=== PATIENT | female | born 1970 | race Caucasian/White ===

== ENCOUNTER → 2019-12-07 17:50 | Outpatient (CLI) | payer MEDICAID, SELFPAY | PROVIDERS: PCP Internal Medicine; Referring Provider Clinical Nurse Specialist; Visit Provider Clinical Nurse Specialist | DX: Z20.828 Contact with and (suspected) exposure to other viral communicable diseases (principal) | CPT/HCPCS: 87635; 94799; U0003 ==

== ENCOUNTER 2020-04-25 03:55 | Emergency (ER) | payer MEDICAID, SELFPAY ==
[2020-04-25 03:56] VITALS: BP 149/71; PULSE 93; RESP 18; TEMP 36.6; O2SAT 96; BMI 19.1
[2020-04-25 04:01] VITALS: BMI 19.1
[2020-04-25 04:05] VITALS: BP 149/71; PULSE 93; RESP 18; O2SAT 96
--- NOTE | 2020-04-25 04:07 | CT_ITS ---
We are attempting to reach an attending provider to discuss findings. An addendum with communication details will be sent when the communication is complete. HISTORY: APHASIA ADDITIONAL HISTORY: None provided. COMPARISON: None EXAMINATION/TECHNIQUE: CT Head Stroke Protocol W/O Contrast Injection. Axial, coronal and sagittal images. Number of images including paperwork: 241. A radiation dose optimization technique was used for this scan. FINDINGS: BRAIN: No acute hemorrhage or mass. No definite acute infarct; MRI more sensitive. VENTRICULAR SYSTEM: No hydrocephalus. PARANASAL SINUSES AND MASTOIDS: No air-fluid level in the imaged extent. ORBITS: Unremarkable imaged extent. SKELETON AND SOFT TISSUES: Calvarium intact. ASPECTS score: 10 CT/STROKE Brain/Head without Cont IMPRESSION: No acute intracranial abnormality. Individualized dose optimization techniques were used for this CT. at 0437 Reported and signed by: Marcela Trujillo MD Electronically Signed: Marcela Trujillo MD at 4:37 EST Tel , Service support ,
--- NOTE | 2020-04-25 04:07 | EKG12_ITS ---
Test Reason : NEURO Blood Pressure : / mmHG Vent. Rate : 086 BPM Atrial Rate : 086 BPM P-R Int : 146 ms QRS Dur : 076 ms QT Int : 394 ms P-R-T Axes : 068 058 177 degrees QTc Int : 471 ms Normal sinus rhythm Low voltage QRS T wave abnormality, consider inferior ischemia T wave abnormality, consider anterolateral ischemia Prolonged QT Abnormal ECG Confirmed by ANDREW MÁRQUEZ, RENAE ([id number]), design editor RADHA JONES ([id number]) on 04/28/2020 9:53:50 AM Referred By: Confirmed By:RENAE MORALES MD
--- NOTE | 2020-04-25 04:07 | RAD_ITS ---
HISTORY: neuro deficit recent dx with lung ca ADDITIONAL HISTORY: None provided. EXAMINATION/TECHNIQUE: XR Chest 1 View AP/PA Number of images including paperwork: 1 COMPARISON: None FINDINGS: LUNGS AND PLEURA: Moderate sized loculated left pleural effusion and left pleural thickening with left basilar opacity. Linear right basilar opacity suggestive of subsegmental atelectasis. CARDIAC SILHOUETTE: Unremarkable. MEDIASTINUM AND JANIE: Unremarkable. UPPER ABDOMEN: Unremarkable. SKELETON AND SOFT TISSUES: No acute skeletal findings. OTHER DEVICES AND HARDWARE: None. RAD/Chest 1 View IMPRESSION: Loculated left pleural effusion with pleural thickening and left basilar opacity consistent with provided history of lung cancer. Linear right basilar opacity suggestive of subsegmental atelectasis. at 0505 Reported and signed by: Marcela Trujillo MD Electronically Signed: Marcela Trujillo MD at 5:05 EST Tel , Service support ,
--- NOTE | 2020-04-25 04:07 | CT_ITS ---
We are attempting to reach an attending provider to discuss findings. An addendum with communication details will be sent when the communication is complete. HISTORY: STROKE Aphasia TECHNIQUE: CT angiogram of the brain was performed with IV contrast. CT angiogram images of the neck were obtained with IV contrast. 3D reconstructions were reviewed to aid in vascular evaluation. NASCET criteria using the distal internal carotid arteries were used for evaluation of stenoses. A radiation dose optimization technique was used for this scan. IV Contrast dosage and agent: 100 ml [id number] Number of images including paperwork: 776 COMPARISON: None CTA neck: FINDINGS: AORTIC ARCH AND BRANCHES: No dissection. RIGHT CAROTID ARTERIES: No occlusion, significant stenosis or dissection. LEFT CAROTID ARTERIES: No occlusion, significant stenosis or dissection. RIGHT VERTEBRAL ARTERY: No occlusion, significant stenosis or dissection. LEFT VERTEBRAL ARTERY: No occlusion, significant stenosis or dissection. NECK SOFT TISSUES: Unremarkable. LUNG APICES: Moderate size loculated left pleural effusion with some nodular appearing pleural thickening along the medial hemithorax. Severe emphysema. BONES: Unremarkable. IMPRESSION: No acute vascular abnormality of the neck. Loculated left pleural effusion with nodular pleural thickening concerning for the possibility of tumor. CTA head: FINDINGS: INTERNAL CAROTID ARTERIES: No significant stenosis of the intracranial segments. 3 x 4 mm aneurysm of the right supraclinoid ICA. ANTERIOR CEREBRAL ARTERIES: No significant stenosis of the visualized segments. ANTERIOR COMMUNICATING ARTERY: Present. MIDDLE CEREBRAL ARTERIES: No significant stenosis of the visualized segments. VERTEBRAL ARTERIES: No significant stenosis of the intradural/visualized segments. BASILAR ARTERY: No significant stenosis. POSTERIOR CEREBRAL ARTERIES: No significant stenosis of the visualized segments. CT/STROKE CTA Head AND Neck W/Con IMPRESSION: No acute vascular abnormalities of the head. Right supraclinoid ICA aneurysm. Individualized dose optimization techniques were used for this CT. at 0444 Reported and signed by: Marcela Trujillo MD Electronically Signed: Marcela Trujillo MD at 4:43 EST Tel , Service support ,
[2020-04-25 04:13] LABS: Absolute Lymphocyte Count 1.69 X10^3/uL (0.83-4.51); Absolute Neutrophil Count 8.1 X10^3/uL (2.0-7.7); Basophil# 0.06 X10^3/uL; Basophil% 0.6 % (0-1); Eosinophil# 0.03 X10^3/uL; Eosinophils% 0.3 % (0-5); Hematocrit 47.5 % (37-47); Hemoglobin 15.1 g/dL (12.0-15.0); Lymphocyte # 1.69 X10^3/ul (4.0); Lymphocyte % 15.9 % (19-41); Mean Corp Hgb Conc 31.8 g/dL (32-36); Mean Corpuscular Hgb 29.4 pg (27.0-32.0); Mean Corpuscular Volume 92.4 fL (81-99); Mean Platelet Vol. 9.5 fl (6.2-12.0); Monocyte# 0.74 X10^3/uL; NRBC Flagged by Analyzer 0 % (0-5); Neutrophil # 8.05 X10^3/uL (2.7-7.7); Neutrophil % 75.9 % (47-70); Platelet Count 411 K/mm3 (150-450); RBC Distribution Width CV 12.5 % (11.6-14.6); RBC Distribution Width SD 42.7 fl (35.1-43.9); Red Blood Count 5.14 M/mm3 (4.2-5.4); White Blood Count 10.6 K/mm3 (4.4-11.0)
[2020-04-25 04:23] LABS: Prothrombin Time (Protime)PT. 12.8 SECONDS (11.7-14.9)
--- NOTE | 2020-04-25 04:24 | ED.VIS.STROK ---
History of Present Illness Chief Complaint: Neuro S/Sx Informant: Patient, Friend Narrative: At approximately 2300 hrs. the patient was leaving her friend's house. She came back inside about 10 minutes after leaving and reportedly had fallen. She was having difficulty speaking and moving the right side of her body. Her friend tried to convince her to come to the hospital but she did not want to. He tells me that she has recently been diagnosed with stage IV lung cancer. He states that the work-up had been done through [facility]. There is does have an appointment tomorrow with oncology but they do not know with whom. Patient reports not being on a blood thinner. Past Medical History - Allergies and Home Meds Allergies/Adverse Reactions: Allergies No Known Allergies Allergy (Verified 04/25/20 04:00) Primary Care Physician: Pamela Stephenson MD [Primary Care Provider] - Past Medical History: - - Stage IV lung cancer Surgical History: noncontributory Smoking Status: Former smoker Drugs: None Review of Systems ROS: Unable to Obtain STROKE Vital Signs/Narrative: Vital Signs Temp Pulse Resp BP Pulse Ox 04/25/20 04:05 93 18 149/71 H 96 04/25/20 03:56 97.9 F 93 18 149/71 H 96 Inital Vital Signs reviewed: Yes - NIHSS Initial 1a Level of Consciousness: 0 1b LOC Questions (Score 2 if aphasic/stupor): 1 1c LOC Commands (Only score 1st attempt): 0 2 Best Gaze (If aphasic, use reflexive mvmts.): 0 3 Visual: 0 4 Facial Palsy: 0 5 Motor Arm Right (UN = amputation/fusion): 0 5 Motor Arm Left: 0 6 Motor Leg Right: 0 6 Motor Leg Left: 0 7 Limb ataxia (Only + if out of proportion): 1 8 Sensory (Aphasia/stupor=0 or 1, coma=2): 0 9 Best Language: 2 10 Dysarthria (mute, coma=2, intubated=UN): 1 11 Extinction and Inattention (only scored if +): 0 Total Score: 5 General: Well nourished, Well developed Head: Normocephalic, Atraumatic Eyes: Perrl, EOMI ENT: Moist mucous membranes, No rhinorrhea Neck: Supple, Nontender Cardiovascular: Regular rate, Regular rhythm, No murmurs Respiratory: No distress, CTA bilaterally, Chest nontender Abdomen: Soft, Nontender, Nondistended, Normal bowel sounds Back: Nontender, Normal Inspection Extremities: Nontender, No edema Skin: Normal color, No rash Neurological: Alert, - - Patient has expressive aphasia. She has past pointing with [id number] on the right. Psychological: Normal affect Diagnostic/Tx/Re-eval Clinical Impression(s) from Imaging Studies Brain CT 04/25/20 04:07 IMPRESSION: No acute intracranial abnormality. Individualized dose optimization techniques were used for this CT. at 0437 Reported and signed by: Marcela Trujillo MD Electronically Signed: Marcela Trujillo MD at 4:37 EST Tel , Service support , Head/Neck CTA 04/25/20 04:07 IMPRESSION: No acute vascular abnormalities of the head. Right supraclinoid ICA aneurysm. Individualized dose optimization techniques were used for this CT. at 0444 Reported and signed by: Marcela Trujillo MD Electronically Signed: Marcela Trujillo MD at 4:43 EST Tel , Service support , Laboratory Last Values WBC 10.6 K/mm3 (4.4-11.0) 04/25/20 04:00 RBC 5.14 M/mm3 (4.2-5.4) 04/25/20 04:00 Hgb 15.1 g/dL (12.0-15.0) H 04/25/20 04:00 Hct 47.5 % (37-47) H 04/25/20 04:00 MCV 92.4 fL (81-99) 04/25/20 04:00 MCH 29.4 pg (27.0-32.0) 04/25/20 04:00 MCHC 31.8 g/dL (32-36) L 04/25/20 04:00 RDW Std Deviation 42.7 fl (35.1-43.9) 04/25/20 04:00 RDW Coeff of Annmarie 12.5 % (11.6-14.6) 04/25/20 04:00 Plt Count 411 K/mm3 (150-450) 04/25/20 04:00 MPV 9.5 fl (6.2-12.0) 04/25/20 04:00 Immature Gran % (Auto) 0.300 % (0.0-0.9) 04/25/20 04:00 Neut % (Auto) 75.9 % (47-70) H 04/25/20 04:00 Lymph % (Auto) 15.9 % (19-41) L 04/25/20 04:00 [place] % (Auto) 7.0 % (0-10) 04/25/20 04:00 Eos % (Auto) 0.3 % (0-5) 04/25/20 04:00 Baso % (Auto) 0.6 % (0-1) 04/25/20 04:00 Absolute Neuts (auto) 8.1 X10^3/uL (2.0-7.7) H 04/25/20 04:00 Absolute Lymphs (auto) 1.69 X10^3/uL (0.83-4.51) 04/25/20 04:00 Nucleated RBC % 0 % (0-5) 04/25/20 04:00 PT 12.8 SECONDS (11.7-14.9) 04/25/20 04:00 INR 1.0 04/25/20 04:00 APTT 23.0 Seconds (24.1-36.2) L 04/25/20 04:00 Sodium 142 mmol/L (136-145) 04/25/20 04:00 Potassium 3.9 mmol/L (3.5-5.1) 04/25/20 04:00 Chloride 109 mmol/L (98-107) H 04/25/20 04:00 Carbon Dioxide 25.0 mmol/L (21.0-32.0) 04/25/20 04:00 Anion Gap 8 (5-15) 04/25/20 04:00 BUN 13 mg/dL (7-18) 04/25/20 04:00 Creatinine 0.71 mg/dL (0.55-1.02) 04/25/20 04:00 Estim Creat Clear Calc 79.32 ml/min 04/25/20 04:00 Est GFR (MDRD) Af Amer 112 mL/min (>60) 04/25/20 04:00 Est GFR (MDRD) Non-Af 93 mL/min (>60) 04/25/20 04:00 BUN/Creatinine Ratio 18.4 RATIO (10-20) 04/25/20 04:00 Glucose 128 mg/dL (74-106) H 04/25/20 04:00 Calcium 9.2 mg/dL (8.5-10.1) 04/25/20 04:00 Troponin I < 0.015 ng/mL (<0.045) 04/25/20 04:00 - EKG Initial EKG Interpretation: Sinus Rhythm - EKG demonstrates a normal sinus rhythm at a rate of 86. - Medical Decision Making Stroke Team Activated: Yes Reviewed Inclusion/Exclusion criteria: Yes Was Patient considered for Endovascular Intervention?: Yes IV Alteplase (t-PA) Administered: No No contraindications for IV Alteplase (t-PA) administration.: No Alteplase (t-PA) risks, benefits, alternative discussed: No Not given: Patient refusal: No 49-year-old female with a pronounced expressive aphasia and ataxia of the right arm. She was interviewed by [facility] teleneurology. It was felt that the patient may have a clot involving her dural artery. They recommend transfer to [facility] for further care. Initially patient refused. We had a conversation and the patient agrees. Unfortunately does not appear anybody is flying tonight. We will work diligently to get ground transportation here. Critical care time (excluding procedures): 30-74 minutes - 35 minutes ED Disposition - Plan for ED Patient: Disposition: [facility] Diagnosis: Acute ischemic stroke, Expressive aphasia Referrals: Pamela Stephenson MD [Primary Care Provider] -
[2020-04-25 04:29] LABS: Anion Gap 8 (5-15); BUN 13 mg/dL (7-18); BUN/Creat Ratio 18.4 RATIO (10-20); Calcium,Total 9.2 mg/dL (8.5-10.1); Chloride 109 mmol/L (98-107); Creatinine, Serum 0.71 mg/dL (0.55-1.02); EST Glomerular Filtration Rate 93 mL/min (>60); Est Glom Filt Rate - Afr Amer 112 mL/min (>60); Estimated Creatinine Clearance 79.32 ml/min; Glucose 128 mg/dL (74-106); Potassium 3.9 mmol/L (3.5-5.1); Sodium Level 142 mmol/L (136-145)
[2020-04-25 04:40] VITALS: BP 125/70; PULSE 93; RESP 25; O2SAT 92
--- NOTE | 2020-04-25 05:16 | NURSING ---
NEITHER [employer] OR [employer] ARE FLYING CALLED PHYSICIANS, THEY ARE CALLING OTHER COMPANIES SINCE THEY HAVE A LONG WAIT TILL THEY COULD GET TRANSPORT TO US
[2020-04-25 05:37] VITALS: BP 124/68; PULSE 85; RESP 23; O2SAT 94
[2020-04-25 05:56] VITALS: BP 124/68; PULSE 85; RESP 23; O2SAT 94
[2020-04-25 06:00] VITALS: BP 118/69; PULSE 55; RESP 23; O2SAT 92
[2020-04-25 08:46] LABS: Bedside Glucose 128 mg/dL (70-110)
== END 2020-04-25 06:10 | disposition short-term general hospital (02) ==
PROVIDERS: Emergency Provider Emergency Medicine; PCP Internal Medicine
DX: I63.9 Cerebral infarction, unspecified (principal); R47.01 Aphasia; Z87.891 Personal history of nicotine dependence
CPT/HCPCS: 70450; 70496; 70498; 71045; 80048; 82962; 84484; 85025; 85610; 85730; 93005; 99285; Q9967; A4216

== ENCOUNTER → 2020-05-13 09:42 | Outpatient (CLI) | payer MEDICAID, SELFPAY ==
[2020-04-25 04:01] VITALS: BMI 19.1
--- NOTE | 2020-05-13 | IMM_PTH ---
PATIENT: MARTIN SIM LOC: U#:[id number] AGE/SX: 54/F ROOM: RE05/13/[address]: Dr. Grisel Alexander MD : 1970 BED: DIS: SPEC #: [id number] RECD: 05/14/20 12:31 STATUS: ASTER REQ #: [id number] IFEOMA: 05/13/20 00:[address]: Grisel Alexander DEPT: IMMUNOHISTOCHEMISTRY RECD BY: Aaliyah Nova ENTERED: 05/14/20 12:33 SP TYPE: IMMUNO OTHR DR: Dr. Pamela Stephenson MD Tissues: THORACIC FLUID Procedures: RCC (add) NAPSIN A (add) Viktor Ret (add) CK19 (add) CK20 (add) CK5-6 (add) CK7 (add) CK8 (add) ACKERMAN-2 (add) MAMM (add) P53 (add) MS (add) TTF1 (add) Vimentin (add) Pankeratin (add) GATA3 (add) P40 (add) CDX2 (add) ER (initial) S-100 (add) PHYSICIAN & [place] [phone] SPECIMEN INFORMATION: Tissue Source: Thoracentesis fluid Clinical Info: Pleural effusion Specimen Number: [id number] CPT code: 36258, 21784 x19 METHODOLOGY: Deparaffinized sections of prefer/formalin-fixed tissue or PAP/DQ stained slides are incubated with monoclonal/polyclonal antibodies/oligonucleotide probes. Localization is made via biotin free immunoperoxidase method. Appropriate controls are performed and reacted as expected. Results on target cell population are indicated in the following table: RESULTS: ANTIBODY / CLONE RESULT ER (6F11) negative MS (1E2) negative Mammaglobin (31A5) negative GATA3 (L50-823) negative AE1-3 (AE1/AE3/PCK26) positive CK7 (OV-TL12/30) positive CK8 (99zqbiF75) positive CK20 (KS20.8) negative ACKERMAN-2 (SP21) negative CDX2 ([id number]) negative Vimentin (V9) negative S-100 (4C4.9) negative CK19 (A53-B/A2.26) positive TTF-1 (8G7G3/1) positive, focal Napsin A (Rabbit Polyclonal) positive RCC (PN-15) negative CALRET (polyclonal) negative CK5-6 (D5 & 1684) negative P40 (BC28) negative P53 (DO-7) negative These tests were developed and their performance characteristics determined by [facility]. They may not have been cleared or approved by the U.S. Food and Drug Administration. The FDA has determined that such clearance or approval is not necessary. The above immunohistochemical/dualISH markers are ordered and reviewed by the Pathologist. INTERPRETATION: Thoracentesis fluid: Non-small cell carcinoma. See comment. AM:dina 05/15/2020 Comment: The IHC profile is consistent with a lung adenocarcinoma. Clinical correlation is necessary.
--- NOTE | 2020-05-13 09:55 | US_ITS ---
PROCEDURE: ULTRASOUND GUIDED THORACENTESIS. DATE: . INDICATION: Female, 49 years old. Left pleural effusion. PHYSICIAN: Stephen Kearns M.D. PROCEDURE: The risks, benefits, and alternatives to the procedure were explained to the patient. The specific risks of bleeding, infection, and pneumothorax requiring chest tube insertion were discussed and accepted. Written informed consent was obtained. Ultrasonographic evaluation of the left lower pleural space was carried out. An adequate pocket was identified. The patient was placed in the sitting, upright position. The overlying skin was prepped and draped in sterile fashion. 1% lidocaine was administered subcutaneously for local anesthesia. Under ultrasound guidance, a 5 Faroese thoracentesis needle/catheter system was advanced into the left posterior lower pleural fluid collection. Approximately 650 mL of aleisha-colored fluid was drained. The catheter was removed, and a sterile dressing was applied. A specimen was collected and sent to the laboratory for analysis, as requested by the referring clinician. The patient tolerated the procedure well. A chest x-ray was ordered. US/Thoracentesis W US IMPRESSION: Ultrasound-guided left thoracentesis.. Electronically Signed: Stephen Kearns MD at 12:17 EST , Service support ,
[2020-05-13 09:56] LABS: Hematocrit 45.7 % (37-47); Hemoglobin 14.3 g/dL (12.0-15.0); Mean Corp Hgb Conc 31.3 g/dL (32-36); Mean Corpuscular Hgb 28.9 pg (27.0-32.0); Mean Corpuscular Volume 92.3 fL (81-99); Mean Platelet Vol. 9.3 fl (6.2-12.0); Platelet Count 483 K/mm3 (150-450); RBC Distribution Width CV 12.7 % (11.6-14.6); RBC Distribution Width SD 42.8 fl (35.1-43.9); Red Blood Count 4.95 M/mm3 (4.2-5.4); White Blood Count 7.1 K/mm3 (4.4-11.0)
[2020-05-13 10:55] VITALS: BP 107/53; PULSE 76; RESP 16; TEMP 36.6
--- NOTE | 2020-05-13 11:05 | FLU_PTH ---
PATIENT: MARTIN SIM LOC: U#:[id number] AGE/SX: 54/F ROOM: RE05/13/[address]: Dr. Grisel Alexander MD : 1970 BED: DIS: SPEC #: [id number] RECD: 05/13/20 11:47 STATUS: ASTER LINDO #: [id number] IFEOMA: 05/13/20 11:[address]: Grisel Alexander DEPT: CYTOLOGY RECD BY: Citlali Denny ENTERED: 05/13/20 13:04 SP TYPE: Fluid OTHR DR: Dr. Pamela Stephenson MD Tissues: THORACIC FLUID Procedures: Special Stain Group II Mucicarmine Stain (control) Surgery Specimen Level IV Cytospin Fluid HEADER OPERATION: Ultrasound guided thoracentesis, left PRE-OP DIAGNOSIS: Pleural effusion TISSUE SUBMITTED: Thoracentesis fluid for cytology DIAGNOSIS CYTOLOGY Thoracentesis fluid for cytology (cytospin and cell block): Positive for malignant cells, non-small cell carcinoma. See comment. AM:dina 05/14/2020 COMMENT Immunohistochemistry ([id number]) supports the above diagnosis and favors and adenocarcinoma of lung origin. Mucin stain with matched control was used in the evaluation of this case and is focally positive. CYTOLOGY STUDY Slides are reviewed. CYTOLOGY GROSS Received is 100 ml of yellow, cloudy fluid labeled with the patient's name and and designated per the requisition as thoracentesis. Submitted for cytology preparation including cell block. / dina 05/13/2020 TC:0 CPT: 22044, 47131, 45732 ADDENDUM ADDENDUM ADDENDUM ADDENDUM ADDENDUM ADDENDUM ADDENDUM ADDENDUM ADDENDUM ADDENDUM ADDENDUM 12/30/2020 09:04 ADDENDUM 12/30/2020 09:04 ADDENDUM 12/30/2020 09:04 ADDENDUM 12/30/2020 09:04 ADDENDUM 12/30/2020 09:04 [facility] NGS KRAS SEQUENCING REPORT FROM Mobile Complete RESULT SUMMARY: Normal PERTINENT NEGATIVE RESULTS: The following genes are negative for clinically relevant mutations. Mutational hotspots and surrounding exonic regions were interrogated for DNA level point mutations and indels (fusions not assayed). KRAS Please see complete report in e-chart or EMR
--- NOTE | 2020-05-13 11:10 | RAD_ITS ---
STUDY: X-RAY CHEST REASON FOR EXAM: Female, 49 years old. IMMEDIATELY POST THORA, INSP/EXP TECHNIQUE: AP inspiration and expiration views. COMPARISON: Comparison is made with prior study dated 04/25/2020. FINDINGS: The patient is status post left thoracentesis. There is no evidence of pneumothorax. Residual pleural parenchymal changes are seen at the left lung base. RAD/Chest Insp/Exp 2 View IMPRESSION: Status post left thoracentesis with residual pleural-parenchymal changes at the left lung base. Electronically Signed: Stephen Kearns MD at 12:09 EST , Service support ,
[2020-05-13 11:30] VITALS: BP 119/58; PULSE 80; RESP 18; O2SAT 96
== END ==
PROVIDERS: PCP Internal Medicine; Referring Provider Internal Medicine Hematology & Oncology; Visit Provider Internal Medicine Hematology & Oncology
DX: J90 Pleural effusion, not elsewhere classified (principal)
CPT/HCPCS: 32555; 36415; 71046; 85027; 85610; 88108; 88305; 88313; 88341; 88342

== ENCOUNTER 2020-05-30 12:00 | Outpatient (RCR) | payer MEDICAID, SELFPAY ==
--- NOTE | 2020-05-05 12:54 | HP.PTEVAL_ITS ---
Patient's Visit Information MARTIN SIM is a 49 year old F referred to Physical Therapy by BRAYDON CHONG with a diagnosis of CVA. Date of Evaluation: 05/05/20 Physical Therapist: Clifford Leyva, FREDOT, OCS, CSCS - Visit Plan Frequency: 2x /Week Duration: 4-6 Weeks Plan: 2x/weeek fro 3-4 weeks. PT wishes to focus on shoulder adn should be treated with : R shoulder ROM and strengthening of cuff and scap and posture. Monitor need/desire to strengthen generaly and R LE. may use manual on shoulder for ROM. Ice if needed. - Subjective ( days ago on 04/26/20 had an ischemic stroke. She knew this becasue she could not walk or feel R side or talk right. Had brain surgery right away to remove clot through femoral vein. Was in hospital for a week at [facility]. Could not do inpatient rehab b/c was doing so wella dn went home last . Live alone. One story house no steps. Cannot drive. Staying with son and friend b/c afraid to be home alone. Dresses self adn bathe and shower self. Walking is OK, balance may be off sometimes. No dizzyness. Out of breath at times. takes a lot longer to do things than it used to. During the day she goes to her house and cleans up but spends the night elsewhere. Sleeping is not great as R armand rivera hurts at t imes. No falls except the night she had stroke. X rayed R shoulder at hospital. Empoyed in residential, helping people as needed. Pt also has lung CA so may not go back to work. Still workig on the treatment for that as she just found out before . Enjoys thrift shopping when healthy. Walking at [facility] wehn heatlhy. R foot adn leg feel pretty good, they shake sometimes. - Pain R shoulder Pain Intensity (Out of 10): 0 Pain Intensity Range: 0, 3 - Objective Walks I but slowly back to PT. Trasnfers I. Steps are reciprocal without rail today. UE AROM is full but slow on R side at end range of flexion to 130 and starts to get painful. Rotations are full in both shoulders. Elbow and wrist are WFL. Sensatio in UE are full and WNL to gross light touch. reflexes 2/3 bi and tri. LE AROM WNL, mild tightness HS B. reflexes 2/3 patella adn achilles. Sensation wNL to gross light touch in LE. Strength in LE 4 on r and 4+ on L. UE strength R shoulder 4- R adn 4 L. elbows also slightly weak on R. + HK and neer on R, - ext rotation lag test, - sulcus. Slight pain with apprehension but negative. Will benefit from Fine motor eval for OT and Speech eval as she has difficulty relaying her thoughts to me effecti vely at times and finsihing conversation. Otherwsie very functional with legs and balance. Wants to focus on shoulder in PT. - Balance Scores Functional Gait Assessment Score: 28 % Disability: 6.6700 - Goals Goal 1:: Sleep without waking at night due to R shoulder Goal Time Frame: 2-4 Weeks Goal 2:: Pain in R shoulder abolished adn full ROM to reachi into cupboards normally Goal Time Frame: 2-4 Weeks - Rehabilitation Potential Physical Therapy Diagnosis: R sided weakness CVA causing shoulder pain and difficulty sleeping. Rehabilitation Potential: Good - Anticipated Interventions Patient/Client Instruction: Educate patient on: Condition, Plan of Care For the Purpose of:: To decrease pain, To increase ROM, To improve muscle performance and motor function, To increase tolerance to activity/condition/position Therapeutic Exercise to Include: Strength training, Postural training, Flexibilty training, Neuromotor development, Passive ROM, Active ROM, Scapular Strength/Stabilization For the Purpose of:: To decrease pain, To increase ROM, To improve muscle performance and motor function, To increase tolerance to activity/condition/position, To improve ability of physical actions for home/community/work/leisure Manual Therapy Techniques to Include: Mobilization, Soft tissue mobilization For the Purpose of:: To decrease pain, To increase ROM Cryotherapy (ice pack, ice massage): Yes For the Purpose of:: To decrease swelling/inflammation Thank you for the opportunity to evaluate your patient. For Medicare and Medicare HMO plans, please review the plan of care and approve it. It will need to be FAXED BACK to us at [phone] for Medicare purposes. For Medicare only, by signing this I certify the plan of care. Please let me know if there are questions or concerns regarding this plan of care. Physician Signature: Date:
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
--- NOTE | 2020-05-12 18:40 | SOAP_ITS ---
REASON FOR REFERRAL: The patient is a 49 year old [place]Emale referred for a clinical assessment of the swallow function and communication function at [facility] on 05/12/2020 status post right supraclinoid ICA aneurysm. PREVIOUS MODIFIED BARIUM SWALLOW STUDY: None RESULTS OF THE EVALUATION: The patient presents with mild oropharyngeal dysphagia (I69.391) and mild aphasia (I69.320) SUPPLEMENTARY DYSPHAGIA ASSESSMENT RESULTS (SCALES / PROM): EATING ASSESSMENT TOOL ? 10 (EAT-10): EAT-10 TOTAL SCORE: 10 EAT-10 INTERPRETATION: a score of 3+ may represent swallowing problems ORAL MOTOR / MODIFIED CRANIAL NERVE ASSESSMENT (QUALITATIVE): TRIGEMINAL NERVE (CNV): no clinically significant abnormalities observed FACIAL NERVE (CNVII): abnormal; trace right facial and labial asymmetry at rest upon retraction GLOSSOPHARYNGEAL NERVE (CNIX): no clinically significant abnormalities observed VAGUS NERVE (CNX): no clinically significant abnormalities observed HYPOGLOSSAL NERVE (CNXII): no clinically significant abnormalities observed DENTITION: natural upper / lower dentition in sufficient repair SALIVATION: mild/moderate xerostomia (dry mouth), intermittent diurnal sialorrhea (drooling during daytime) COUGH SUFFICIENCY: impaired volitional cough intensity likely complicated by pleural effusion VOCAL QUALITY: abnormal vocal quality, with dysarthria with hypophonia, and vocal harshness (raspy) and hoarseness ORAL MOTOR / MODIFIED CRANIAL NERVE ASSESSMENT (QUANTITATIVE): PEITERSEN GRADING SYSTEM: GRADE: grade II DEGREE OF PALSY: moderate DESCRIPTION OF PALSY: moderate; visible with small facial movements SIALORRHEA SCORING SCALE (SSS): SSS SCORE: 4 (of 9) SSS DESCRIPTION: moderate, wet on the lips and chin, occasionally CLINICAL ASSESSMENT OF SWALLOW FUNCTION (QUANTITATIVE): REPETITIVE SALIVA SWALLOWING TEST (RSST): RSST RESULT: pass RSST DESCRIPTION: able to elicit 2 dry swallows within 30 seconds. 1OZ WATER SWALLOWING TEST (1OZ WST): 1OZ WST RESULTS: normal ? 1 (of 5) 1OZ WST DESCRIPTION: single swallow without coughing during ingestion DRINKING EPISODES: none 3OZ WATER SWALLOWING TEST (3OZ WST): 3OZ WST RESULTS: abnormal DRINKING EPISODES: discomfort RODARTE 6 FACTORS: DYSPHONIA: 1 (positive) DYSARTHRIA: 1 (positive) ABNORMAL GAG RESPONSE: ABNORMAL VOLITIONAL COUGH: 1 (positive) POST PRANDIAL COUGHIN (negative) POST PRANDIAL VOCAL CHANGES: 0 (negative) RODARTE 6 FACTORS SCORE: 3 RODARTE 6 FACTORS DESCRIPTION: moderate to severe (2 or more clinical predictors) SALCEDO ASSESSMENT OF SWALLOWING ABILITY (MASA): MASA SEVERITY SCORE: 184 MASA SEVERITY SCORE DESCRIPTION: unremarkable MASA ASPIRATION SEVERITY SCORE: 184 MASA ASPIRATION SEVERITY SCORE DESCRIPTION: unremarkable MASA DYSPHAGIA RISK RATING: probable; moderate evidence for disorder CLINICAL ASSESSMENT OF SWALLOW FUNCTION (QUALITATIVE): ORAL PREPARATORY PHASE: sufficient mastication rate and quality; sufficient anterior oral containment during manipulation; preserved management of breathing / bolus formation without disrupted E ? S ? E pattern ORAL TRANSITIONAL PHASE: no signs of transitional incompetence; no signs of bolus consolidation impairments; no signs or symptoms of premature posterior bolus loss; PHARYNGEAL PHASE: appropriate hyolaryngeal excursion upon digital palpation; intermittent / prominent audible swallow possibly suggestive of pharyngeal swallow delay / dyssynchrony; occasional multiple swallows during trials of smaller / rather manageable bolus volumes suggestive of pharyngeal dysmotility, no subjective signs of velopharyngeal impairments; no overt signs or symptoms of penetration / aspiration throughout trials. ESOPHAGEAL PHASE: esophageal phase appears unremarkable COMPLICATING FACTORS AND NOTABLE FINDINGS: clearly uncomfortable during trials, she is acutely aware of her dysphagia based symptomology, which is the likely factor after discussing with the patient. CLINICAL ASSESSMENT OF SWALLOW FUNCTION (SEVERITY GRADING): SWALLOWING PERFORMANCE SCALE (SPS): SPS SCORE: 3 (of 7) SPS SEVERITY LEVEL: mild SPS SCORE DESCRIPTION: mild dysfunction in oral or pharyngeal stage; requires modified diet without need for therapeutic swallowing precautions. COGNITIVE COMMUNICATION ASSESSMENT RESULTS (QUANTITATIVE): QUICK APHASIA BATTERY (QAB): <FORM 1> WORD COMPREHENSION: 10 /10 SENTENCE COMPREHENSION: 10 WORD FINDIN.83 /10 GRAMMATICAL CONSTRUCTION: 9.0 /10 SPEECH MOTOR PROGRAMMIN /10 REPETITION: READIN /10 QAB OVERALL: 9.49 /10 QAB SEVERITY: normal APHASIA CONNECTED SPEECH FEATURES: REDUCED LENGTH / COMPLEXITY OF UTTERANCES: 4 (Normal) REDUCED SPEECH RATE: 4 (100+ wpm) AGRAMMATISM: 4 (normal) PARAGRAMMATISM: 2 (moderate) ANOMIA: 3 (mild) EMPTY SPEECH: 2 (moderate) SEMANTIC PARAPHASIAS: 4 (normal) PHONEMIC PARAPHASIAS & NEOLOGISMS: 4 (normal) SELF CORRECTION: 3 (mild) OVERALL COMMUNICATION IMPAIRMENT: 3 (mild) MOTOR SPEECH FEATURES: DYSARTHRIA: 4 (normal) APRAXIA OF SPEECH: 4 (normal) APRAXIA OF SPEECH RATING SCALE (ASRS-v1): ASRS-v1 SCORE: 0 (of 4) ASRS-v1 SCORE DESCRIPTION: apraxia not present APHASIA SEVERITY RATING SCALE (ASRS): ASRS SCORE: 4 (of 5) ASRS SCORE DESCRIPTION: some obvious loss of fluency in speech or facility of comprehension, without significant limitation on ideas expressed or form expression COMMUNICATION ASSESSMENT RESULTS (QUALITATIVE): LANGUAGE FUNCTIONING: reduced mean length of utterances and rate of speech that can lack specificity, with occasional (and reportedly improving) anomic blocks; trace to mild dysarthria; mild apraxia, agraphia, or alexia noted. VOCAL FUNCTIONING: noted hypophonia with intermittent dysphonia (abnormal vocal quality) COMPLICATING FACTORS AND NOTABLE FINDINGS: complicating factors include possible effects from potential cancer based treatments, as she is perusing a second opinion regarding the possibility of lung cancer. COMMUNICATION ASSESSMENT RESULTS (SEVERITY GRADING): FUNCTIONAL COMMUNICATION MEASURE (FCM) ?LANGUAGE COMPREHENSION FCM ? LANGUAGE COMPREHENSION: 0 (of 6) SEVERITY: independent LEVEL DESCRIPTION: comprehension of language is appropriate for chronological age in all contexts. FUNCTIONAL COMMUNICATION MEASURE (FCM) ?LANGUAGE PRODUCTION FCM ? LANGUAGE PRODUCTION: 1 (of 6) SEVERITY: mild LEVEL DESCRIPTION: uses conversation to communicate a full range of needs and comments in broad contexts; minimal errors are noted in language structures (semantic, syntactic, morphologic, pragmatic); minimal errors are noted in phonologic awareness and/or metalinguistic skills; is a full conversational participant; self-monitoring is evident approximately 90% of the time. INTERVENTION CONSIDERATIONS AND RECOMMENDATIONS: While the questions regarding her swallow function would typically warrant further investigation under fluoroscopy, the patient was clear in that she would prefer to hold any diagnostic testing under radiation at this time. Therefore, we will proceed without fluoroscopy, though will continue to consider this option moving forward. RECOMMENDATIONS FOR INTERVENTION: The patient requires continued skilled speech-language intervention targeting oropharyngeal dysphagia via diet texture management and training / implementation of recommended compensatory strategies; training and implementation of recommended oropharyngeal strengthening exercises to facilitate improved oropharyngeal strength and coordination; patient education regarding stroke associated dysphagia; as well as continued skilled speech-language intervention targeting expressive aphasia with considerations for semantic feature analysis training (SFAT); with goal adjustment as clinically indicated POST ASSESSMENT EDUCATION: The results and recommendations were discussed with the patient immediately following completion of the assessment, with the patient verbalizing understanding and agreement with all recommendations and education provided. DIET TEXTURE RECOMMENDATIONS: Will recommend a regular ? easy to chew textured (IDDSI: 7), thin liquid diet (IDDSI: 0) diet RECOMMENDED COMPENSATORY STRATEGIES: Consider execution of the chin tuck posture via straw, reduced bolus volume / rate of ingestion, seated upright at 90 degrees during PO intake, remain upright for 30-60 minutes post meal (GERD precaution) FUNCTIONAL OUTCOMES: OUTCOME 1: the patient will tolerate the least restrictive means of nutrition to facilitate adequate hydration / nutrition with optimum safety and efficiency of swallowing function during P.O. intake without overt signs and symptoms of aspiration. OUTCOME 2: the patient will demonstrate and utilize recommended oropharyngeal strengthening exercises to facilitate improved oropharyngeal strength and coordination with minimal cueing and prompting provide by the clinician, across 2 out of 3 sessions. OUTCOME 3: the patient will participate in continual patient / patient caregiver education regarding stroke associated dysphagia to facilitate improved awareness and insight into the patient?s current dysphagia related complications and potential impact on the patient?s overall medical stability. OUTCOME 4: the patient will demonstrate and utilize recommended compensatory expressive speech strategies and participate in structured intervention sessions utilizing a variety of approaches (considerations for SFAT) to reduce the presence of aphasia / anomia communication attempts, during both structured and unstructured therapeutic tasks. OUTCOME 5: goal adjustment as needed Kingsley Dickerson M.A., CCC-PIPE STRAIGHTENER, CBIS MBSImP Certified, LSVT Certified [facility] Speech-Language Pathology Department Email: [email or web address]
[2020-05-22 13:44] VITALS: BMI 19.0
--- NOTE | 2020-09-24 12:37 | HP.OTDCNRP_ITS ---
MARTIN Kyle SIM was seen in my office for initial evaluation on 05/12/20. The following Plan of Care was established for this patient: Initial Frequency: 1x/Week Initial Duration: 4 Weeks Plan: opening jars/containers, avila pinch; thumb weakness; makeup; toileting Anticipated Interventions: Strengthening, Sensory Retraining, Fine Motor Coord/Raul, Neuro Reeducation, ADL Training, Education re assistive Equipment This patient was last seen in our office 05/30/20. Pertinent comments regarding their Occupational therapy will appear below: pt was seen for three OT visits with cancellation of her last apt due to weather. pt has not scheduled apts and due to time lapse in services pt d/c. At this point I will be discontinuing this patient from occupational therapy. I would be happy to see this patient again in the future if found appropriate by t gayatri physician. Thank you! Yajaira Tadeo, OTR/L, CHT
== END 2020-05-30 19:00 | disposition home or self-care (01) ==
LOC: OT 12:00
PROVIDERS: PCP Internal Medicine
DX: E87.8 Other disorders of electrolyte and fluid balance, not elsewhere classified (principal); Z86.73 Personal history of transient ischemic attack (TIA), and cerebral infarction without residual deficits
CPT/HCPCS: 97110; 97162; 97166; 97530

== ENCOUNTER → 2020-06-17 16:48 | Outpatient (CLI) | payer MEDICAID, SELFPAY ==
[2020-06-10 10:38] VITALS: BMI 17.7
--- NOTE | 2020-06-17 16:54 | CT_ITS ---
STUDY: CT CHEST WITH CONTRAST REASON FOR EXAM: Female, 49 years old. LUNG CANCER. Stage IV. RADIATION DOSAGE (If Supplied By Facility): CTDIvol = ( 6.05 ) mGy, DLP = ( 195.4 ) mGycm TECHNIQUE: Transaxial imaging was performed following intravenous administration of IV 100mL Isovue-370. Multiplanar coronal and sagittal images were reformatted. Individualized dose optimization techniques were used for this CT. COMPARISON: None. FINDINGS: Mild loss in the left hemithorax with compensatory expansion of the right lung. Diffuse emphysematous changes with bullous formation worse in the upper lobes. Diffuse pleural thickening involving the left hemithorax with a small left pleural effusion. Multiple pleural-based nodules are seen in the left hemithorax. The largest is seen in the anterior medial aspect of the left upper lobe and measures 1.9 cm x 1.5 cm. Thickening of the right major fissure. Atelectasis at the left lung base with evidence of bronchiectasis. Normal heart and pericardium. Normal mediastinum. Normal hilar regions. Normal enhanced pulmonary arteries. Normal aorta arch and descending thoracic aorta. Increased kyphosis. There is no demonstrated abnormality of the visualized upper abdomen. CT/Chest WITH Contrast IMPRESSION: Mild loss in the left hemithorax with evidence of diffuse pleural thickening on the left side with multiple pleural-based nodules. Scarring and bronchiectasis at the left lung base with evidence of atelectasis at the left lung base. Electronically Signed: Stephen Kearns MD at 9:02 EST , Service support ,
== END ==
PROVIDERS: PCP Internal Medicine; Referring Provider Internal Medicine Medical Oncology; Visit Provider Internal Medicine Medical Oncology
DX: C34.12 Malignant neoplasm of upper lobe, left bronchus or lung (principal)
CPT/HCPCS: 71260; Q9967

== ENCOUNTER → 2020-08-07 12:49 | Outpatient (CLI) | payer MEDICAID, SELFPAY ==
[2020-07-17 14:24] VITALS: BMI 17.3
--- NOTE | 2020-08-07 12:50 | CT_ITS ---
STUDY: CT CHEST T ABDOMEN WITH CONTRAST REASON FOR EXAM: Female, 49 years old. ASSESS TREATMENT RESPONSE-LUNG CANCER RADIATION DOSAGE (If Supplied By Facility): CTDIvol = ( 6.65 ) mGy, DLP = ( 446.22 ) mGycm TECHNIQUE: Transaxial imaging was performed following intravenous administration of IV 100mL Isovue-300. Individualized dose optimization techniques were used for this CT. COMPARISON: Comparison is made with prior examination dated 06/17/2020. FINDINGS: CHEST A right-sided portacatheter is seen with the tip in the superior vena cava. The right lung is hyperexpanded. Stable mild loss in the left hemithorax. Emphysematous changes in the right lung with a multiple bullous formation. This is unchanged. Stable loculated pleural effusion along the lateral aspect of the left hemithorax with thickening of the left major fissure. Stable increased markings in the left lung superimposed on emphysematous changes suggestive of a scarring. Since prior study, there has been progressive of bronchiectasis in the left lower lobe. The previously seen pleural-based nodules in the left lower lobe are visualized. These are essentially unchanged. Stable 1.9 cm x 1.5 cm nodule in the anterior medial aspect of the left upper lobe abutting the mediastinum. Normal heart and pericardium. Normal mediastinum. Normal hilar regions. Normal unenhanced pulmonary arteries. Normal aorta arch and descending thoracic aorta. Normal osseous structures. There is no demonstrated abnormality of the visualized upper abdomen. ABDOMEN Normal liver. Normal gallbladder and extrahepatic biliary system. Normal spleen. Normal pancreas. Normal bilateral adrenal glands. Right pelvic kidney. 3 small adjacent cysts are seen in the upper lateral aspect of the left kidney. Normal visualized stomach. Normal small intestine. Normal colon. The appendix is visualized and appears normal. There is diffuse atherosclerotic calcification of the abdominal aorta, without a demonstrated aneurysm. Normal inferior vena cava. Normal retroperitoneum. Heterogeneously enlargement of the uterus suggestive of fibroid uterus. Normal abdominal wall. Normal osseous structures. Increased kyphosis. CT/CT Chest AND Abd W/ Contrast IMPRESSION: Essentially stable examination of the CT of the thorax except for progressive bronchiectasis and atelectasis at the left lung base. Stable loculated left pleural effusion and nodules at the left lung base. Electronically Signed: Stephen Kearns MD at 14:44 EDT , Service support ,
== END ==
PROVIDERS: PCP Internal Medicine; Referring Provider Internal Medicine Medical Oncology; Visit Provider Internal Medicine Medical Oncology
DX: C34.12 Malignant neoplasm of upper lobe, left bronchus or lung (principal)
CPT/HCPCS: 71260; 74160; Q9967; A4216

== ENCOUNTER 2020-08-27 14:38 | Observation (INO) | payer MEDICAID, SELFPAY ==
[2020-08-20 13:13] VITALS: BMI 17.0
[2020-08-27] VITALS (9 sets, daily range): BP systolic 101–115; BP diastolic 54–92; PULSE 77–96; RESP 14–20; TEMP 36.1–36.8; O2SAT 91–95; BMI 16.5; BMI 35.4
--- NOTE | 2020-08-27 14:59 | CT_ITS ---
STUDY: CT BRAIN WITHOUT CONTRAST REASON FOR EXAM: Female, 49 years old. Visual changes RADIATION DOSAGE (If Supplied By Facility): CTDIvol = ( 44.99 ) mGy, DLP = ( 812.98 ) mGycm TECHNIQUE: Transaxial CT imaging of the brain was performed without administration of intravenous contrast material. Individualized dose optimization techniques were used for this CT. COMPARISON: 04/25/2020 FINDINGS: Normal soft tissue structures. Normal calvarium. There is mild cerebral atrophy with widening of the extra-axial spaces and ventricular dilatation. Normal white matter tracts of the cerebral hemispheres. Chronic lacunar infarct of the left putamen. Normal brainstem. Normal cerebellum. There is no intracranial hemorrhage. There are no findings of an acute ischemic infarction. Normal visualized paranasal sinuses. CT/Brain/Head without Contrast IMPRESSION: Chronic involutional changes of the brain. Electronically Signed: Hernandez Veras MD at 16:08 EDT Tel , Service support ,
--- NOTE | 2020-08-27 15:00 | EKG12_ITS ---
Test Reason : VISION Blood Pressure : / mmHG Vent. Rate : 090 BPM Atrial Rate : 090 BPM P-R Int : 136 ms QRS Dur : 076 ms QT Int : 356 ms P-R-T Axes : 080 088 040 degrees QTc Int : 435 ms Normal sinus rhythm Low voltage QRS (Limb Leads) Confirmed by ANDREW MÁRQUEZ, RENAE ([id number]), editor in chief RADHA JONES ([id number]) on 09/01/2020 2:20:21 PM Referred By: STACEY Confirmed By:RENAE MORALES MD
--- NOTE | 2020-08-27 15:01 | EX.ED.VIS.EY ---
HPI History of Present Illness Chief Complaint: Eye Problem Informant: patient and friend Onset/Context/Timing Location: Right Eye Onset: Today Context: Sudden Onset Timing: Intermittent and Lasts (Approximately 1 to 2 minutes) Worsened by: Bending forward Associated Symptoms Visual Changes: right: Blurred vision and Visual field cut History of injury: No Narrative Narrative: Patient presents with visual changes in her right eye that occurred today. 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 Patient states her vision was blurry and there were spots in her vision. Patient states her vision also went dark. Patient states this lasted proxy 1 to 2 minutes. Patient states her symptoms have resolved at the present time. Patient also states she has been having difficulty sleeping over the last 4 days. Patient states this is due to the pain in her left lower chest from lung cancer. Patient denies any headaches. Patient denies any paresthesias or weakness. [facility] Medical History (Reviewed 08/27/20 @ 17:34 by Sharona Peter DESKTOP SUPPORT ASSOCIATE, DESKTOP SUPPORT ASSOCIATE-C) Allergic rhinitis IBS (irritable bowel syndrome) Lung cancer Stroke/cerebrovascular accident Trigeminal neuralgia of right side of face Home Medications albuterol sulfate 2 puff INHALATION Q4H PRN PRN 05/13/20 [History Last Taken 1 Week Ago ~08/20/20] cyclobenzaprine 1 mg PO QHS PRN 06/09/20 [History Last Taken Unknown] aspirin 81 mg PO DAILY@0800 06/10/20 [History Last Taken 08/27/20] melatonin 5 mg PO QHS PRN 06/10/20 [History Last Taken 08/26/20] multivitamin 1 tab PO DAILY 06/10/20 [History Last Taken 08/26/20] calcium carbonate-vitamin D3 1 tab PO DAILY PRN 06/24/20 [History Last Taken Unknown] cannabidiol 100 mg PO BID PRN 07/01/20 [History Last Taken 08/27/20] naproxen-diphenhydramine 1 ea PO DAILY PRN 07/01/20 [History Last Taken 2 Days Ago ~08/25/20] Allergy/AdvReac Type Severity Reaction Status Date / Time Sulfa (Sulfonamide AdvReac Other Verified 08/27/20 14:39 Antibiotics) Family History Mother MVP (mitral valve prolapse) Atrial fibrillation Surgical History History of dilation and curettage History of exploratory laparotomy History of thoracentesis Social History Smoking Status: Former smoker quit date: 04/18/13 pack-years: 24 caffeine: Yes Type: tea Number of servings: 2 ROS ROS ED Constitutional Constitutional ED: Denies chills or fever(s) Eyes Eyes: Reports change in vision ENT ENT ED: Denies rhinorrhea or sore throat Cardiovascular Cardiovascular: Denies chest pain or palpitations Respiratory/Chest Respiratory/Chest: Reports dyspnea; Denies cough Gastrointestinal Gastrointestinal: Denies nausea or vomiting Genitourinary Genitourinary ED: Denies dysuria or hematuria Musculoskeletal Musculoskeletal: Reports back pain; Denies neck pain Integumentary Denies abscess or rash Neurologic Neurologic: Denies headache(s), paresthesias or weakness Allergic/Immunologic Allergic/Immunologic ED: Denies mouth swelling or urticaria EXAM Physical Exam Const Vital Signs: 08/27/20 14:39 Temperature 98.2 F Temperature Source Temporal Pulse Rate 95 Respiratory Rate 16 Blood Pressure 115/80 Blood Pressure Mean 91 Pulse Ox 95 Oxygen Delivery Method Room Air Positive well nourished and well developed General Appearance ED: well developed HEENT atraumatic Eyes General Eye ED: Yes normal appearance of both eyes and normal light reflex Alignment: alignment normal Eyelid: eyelids normal Conjunctiva: conjunctiva normal Sclera: sclera normal Cornea: cornea normal Pupil: PERRL EOM: Negative for EOM abnormal Direct Ophthalmoscopy: normal light reflex, No papilledema and fundi normal bilaterally Neck supple and no JVD Resp normal respiratory effort Effort and Inspection: other Diminished breath sounds in left base Cardio regular rate and regular rhythm GI non-tender Palpation: soft Neuro oriented x3, CN's II-XII intact bilaterally, moves all extremities and no sensory deficits noted Sensorium / Orientation: alert Motor Exam: strength 5/5 throughout MDM MDM MDM Narrative Medical decision making narrative: CT scan of the brain was obtained. There is no acute intracranial abnormality noted. This was interpreted by the radiologist and reviewed by myself. EKG was obtained. On my interpretation, it showed a normal sinus rhythm with a rate of 90. CO interval, QRS interval, and QTc intervals were all normal. [place] was normal. There are no acute ST or T wave changes. CBC and comprehensive metabolic profile were obtained and were essentially within normal limits. PT with INR and PTT were normal. Patient remained asymptomatic here in the emergency department. Patient states he does have some paresthesias of her right arm and right temporal area but this was due to her prior stroke. Case was discussed with the hospitalist. He will admit the patient to PCU for observation. Patient understood and was agreeable with the plan. All questions were answered. Lab Data Attestation: I reviewed the patient's lab results. EKG Initial EKG: Attestation: I personally reviewed and interpreted this EKG as follows: Interpretation: Sinus Rhythm (90) and No Acute Injury Pattern Prior EKG tracings: available for review Prior: Changed (Patient had prior T wave inversion in the inferior and lateral leads on old EKG from 04/25/2020. These are not present today.) Treatment and Re-Evaluation Vital Sign Attestation:: Vital signs were reviewed prior to patient being admitted. They are stable. Discharge Plan Dx/Rx/DC Orders Clinical Impression: Brain TIA Disposition Disposition: Acute Care Hospital [facility]
[2020-08-27] MEDS: Acetaminophen 500 MG Tablet 1000 MG PO (15:50)
[2020-08-27 15:55] LABS: Absolute Lymphocyte Count 0.84 X10^3/uL (0.83-4.51); Absolute Neutrophil Count 5.4 X10^3/uL (2.0-7.7); Basophil# 0.08 X10^3/uL; Basophil% 1.1 % (0-1); Eosinophil# 0.47 X10^3/uL; Eosinophils% 6.4 % (0-5); Hematocrit 44.2 % (37-47); Hemoglobin 14.3 g/dL (12.0-15.0); Lymphocyte # 0.84 X10^3/ul (0.83-4.51); Lymphocyte % 11.5 % (19-41); Mean Corp Hgb Conc 32.4 g/dL (32-36); Mean Corpuscular Hgb 28.3 pg (27.0-32.0); Mean Corpuscular Volume 87.4 fL (81-99); Mean Platelet Vol. 9.9 fl (6.2-12.0); Monocyte# 0.55 X10^3/uL; Monocyte% 7.5 % (0-10); NRBC Flagged by Analyzer 0 % (0-5); Neutrophil # 5.36 X10^3/uL (2.7-7.7); Neutrophil % 73.4 % (47-70); Platelet Count 428 K/mm3 (150-450); RBC Distribution Width CV 13.2 % (11.6-14.6); RBC Distribution Width SD 42.1 fl (35.1-43.9); Red Blood Count 5.06 M/mm3 (4.2-5.4); White Blood Count 7.3 K/mm3 (4.4-11.0)
[2020-08-27 16:06] LABS: ALB/GLOB Ratio 0.9 RATIO (0.9-2.4); AST(SGOT) 14 U/L (15-37); Alanine Aminotransfer ALT/SGPT 14 U/L (13-56); Albumin, Serum 3.6 g/dL (3.2-5.0); Alkaline Phosphatase 117 U/L (45-117); Anion Gap 5 (5-15); BUN 14 mg/dL (7-18); BUN/Creat Ratio 21.6 RATIO (10-20); Calcium,Total 9.2 mg/dL (8.5-10.1); Chloride 110 mmol/L (98-107); Creatinine, Serum 0.65 mg/dL (0.55-1.02); EST Glomerular Filtration Rate 102 mL/min (>60); Est Glom Filt Rate - Afr Amer 123 mL/min (>60); Estimated Creatinine Clearance 77.43 ml/min; Globulin 3.9 g/dL (2.2-4.2); Glucose 110 mg/dL (74-106); Potassium 3.9 mmol/L (3.5-5.1); Protein, Total 7.5 g/dL (6.4-8.2); Sodium Level 141 mmol/L (136-145)
[2020-08-27 16:30] LABS: International Normalized Ratio 1.1; Prothrombin Time (Protime)PT. 13.3 SECONDS (11.7-14.9)
[2020-08-27 16:31] LABS: Partial Thromboplast Time 27.3 Seconds (24.1-36.2)
--- NOTE | 2020-08-27 17:13 | NURSING ---
DR LI FOR DR IBARRA
--- NOTE | 2020-08-27 17:21 | NURSING ---
PCU OBS TIA ASHELFAH
--- NOTE | 2020-08-27 17:30 | HP.PCM.HOS_ITS ---
Documented by User: Sharona Peter NP, SIGNAL SYSTEM TESTING MAINTAINER-C 08/27/20 17:40 HPI - General General Date of Admission: 08/27/20 HPI Narrative MARTIN SIM, is a 49 F who presents to the emergency room due to right eye vision changes. Patient states she bent over earlier today to pick something up when the visual changes started. She states her visual symptoms are difficult to describe, states her vision went wacky and felt like her vision went in and out. She states the symptoms lasted a couple minutes and then resolved. She reports mild sensory changes surrounding her right eye. Otherwise denies new neurologic symptoms or focal deficits. She had previous CVA in April 2020 and has chronic residual right-sided sensory deficits. Patient states following her stroke she had some ongoing right eye issues however she saw ophthalmology who diagnosed her with dry eye and saw no other abnormalities. She has a past medical history of CVA, non-small cell lung cancer on Keytruda, former tobacco use, COPD, chronic pain. [facility] Medical History Allergic rhinitis IBS (irritable bowel syndrome) Lung cancer Stroke/cerebrovascular accident Trigeminal neuralgia of right side of face Home Medications albuterol sulfate 2 puff INHALATION Q4H PRN PRN 05/13/20 [History Last Taken 1 Week Ago ~08/20/20] cyclobenzaprine 1 mg PO QHS PRN 06/09/20 [History Last Taken Unknown] aspirin 81 mg PO DAILY@0800 06/10/20 [History Last Taken 08/27/20] melatonin 5 mg PO QHS PRN 06/10/20 [History Last Taken 08/26/20] multivitamin 1 tab PO DAILY 06/10/20 [History Last Taken 08/26/20] calcium carbonate-vitamin D3 1 tab PO DAILY PRN 06/24/20 [History Last Taken Unknown] cannabidiol 100 mg PO BID PRN 07/01/20 [History Last Taken 08/27/20] naproxen-diphenhydramine 1 ea PO DAILY PRN 07/01/20 [History Last Taken 2 Days Ago ~08/25/20] Allergy/AdvReac Type Severity Reaction Status Date / Time Sulfa (Sulfonamide AdvReac Other Verified 08/27/20 14:39 Antibiotics) Family History Mother MVP (mitral valve prolapse) Atrial fibrillation other (Denies known paternal medical history, states he was adopted) Surgical History History of dilation and curettage History of exploratory laparotomy History of thoracentesis Social History Smoking Status: Former smoker quit date: 04/18/13 pack-years: 24 caffeine: Yes Type: tea Number of servings: 2 ROS Constitutional Constitutional: Reports fatigue; Denies change in weight, chills, fever(s) or weakness Eyes Eyes: Reports blurry vision right Cardiovascular Cardiovascular: Denies chest pain, edema, lightheadedness, palpitations or syncope Respiratory/Chest Respiratory/Chest: Denies cough, dyspnea, productive cough, shortness of breath at rest, shortness of breath with exertion or wheezing Gastrointestinal Gastrointestinal: Denies abdominal pain, constipation, diarrhea, nausea or vomiting Genitourinary Genitourinary: Denies burning urination, difficulty urinating, dysuria, h ematuria, urinary frequency, urinary incontinence or urinary urgency Musculoskeletal Musculoskeletal: Denies back pain or joint pain Neurologic Neurologic: Denies abnormal speech, confusion, dizziness, focal weakness, numbness, paresthesias, seizure-like activity or syncope Psychiatric Psychiatric: Denies anxiety or depression Hematologic/Lymphatic Hematologic/Lymphatic: Denies anemia, easy bleeding or easy bruising Allergic/Immunologic Allergic/Immunologic: Denies hives or asthma Vital Signs Vital Signs Vital Signs: 08/27/20 14:39 08/27/20 15:08 Temperature 98.2 F Temperature Source Temporal Pulse Rate 95 96 Respiratory Rate 16 14 Blood Pressure 115/80 113/92 H Blood Pressure Mean 91 99 Pulse Ox 95 91 Oxygen Delivery Method Room Air Room Air Physical Exam Const alert, oriented x3 and no apparent distress Orientation / Consciousness: awake, oriented to person, oriented to place and oriented to time HEENT normocephalic and moist oral mucous membranes Eyes PERRL, EOMs intact bilaterally and conjunctivae normal Neck no lymphadenopathy Resp normal respiratory effort and clear to auscultation bilaterally Cardio regular rate, regular rhythm and no murmurs Peripheral Pulses: pulses 2+ throughout GI normal to inspection, nondistended, normoactive bowel sounds, non-tender and non-distended Extremity normal to inspection Skin no rashes or lesions noted Lesions: no lesions Rashes: no rashes Trauma: no lacerations or abrasions Neuro oriented x3, CN's II-XII intact bilaterally and no focal motor deficits Neuro Narrative: Chronic right-sided sensory deficits from prior CVA Sensorium / Orientation: awake and alert Psych affect normal Lab / Micro Data Result Diagrams: 08/27/20 15:38 08/27/20 15:38 Labs: Laboratory Results - last 24 hr 08/27/20 08/27/20 08/27/20 15:38 15:38 15:38 WBC 7.3 RBC 5.06 Hgb 14.3 Hct 44.2 MCV 87.4 MCH 28.3 MCHC 32.4 RDW Std Deviation 42.1 RDW Coeff of Annmarie 13.2 Plt Count 428 MPV 9.9 Immature Gran % (Auto) 0.100 Neut % (Auto) 73.4 H Lymph % (Auto) 11.5 L [place] % (Auto) 7.5 Eos % (Auto) 6.4 H Baso % (Auto) 1.1 H Absolute Neuts (auto) 5.4 Absolute Lymphs (auto) 0.84 Nucleated RBC % 0 PT 13.3 INR 1.1 APTT 27.3 Sodium 141 Potassium 3.9 Chloride 110 H Carbon Dioxide 26.0 Anion Gap 5 BUN 14 Creatinine 0.65 Estim Creat Clear Calc 77.43 Est GFR (MDRD) Af Amer 123 Est GFR (MDRD) Non-Af 102 BUN/Creatinine Ratio 21.6 H Glucose 110 H Calcium 9.2 Total Bilirubin 0.40 AST 14 L ALT 14 Alkaline Phosphatase 117 Troponin I < 0.015 Total Protein 7.5 Albumin 3.6 Globulin 3.9 Albumin/Globulin Ratio 0.[address] 08/27/20 14:59 IMPRESSION: Chronic involutional changes of the brain. Electronically Signed: Hernandez Veras MD at 16:08 EDT Tel , Service support , Assessment & Plan Assessment/Plan (1) Blurry vision, right eye: PLAN: 1. Right eye vision changes-obtain MRI of brain. Aspirin, statin. PT/OT/ST. NIHSS. 2. CVA-04/2020, on aspirin, not on statin. Chronic right-sided sensory deficits. 3. Non-small cell lung cancer on Keytruda-following with oncology. 4. Former tobacco use-quit 7 years ago. Encouraged continued cessation. 5. Chronic COPD-as needed albuterol aerosol. 6. Chronic pain-as needed pain regimen DVT prophylaxis-Lovenox subcu This patient was seen by BRIEN Cee under the supervision of Dr. Guerrero. Documented by User: Dr. Nicki Guerrero MD 08/27/20 17:49 HPI - General General Date of Admission: 08/27/20 [facility] Medical History Allergic rhinitis IBS (irritable bowel syndrome) Lung cancer Stroke/cerebrovascular accident Trigeminal neuralgia of right side of face Home Medications albuterol sulfate 2 puff INHALATION Q4H PRN PRN 05/13/20 [History Last Taken 1 Week Ago ~08/20/20] cyclobenzaprine 1 mg PO QHS PRN 06/09/20 [History Last Taken Unknown] aspirin 81 mg PO DAILY@0800 06/10/20 [History Last Taken 08/27/20] melatonin 5 mg PO QHS PRN 06/10/20 [History Last Taken 08/26/20] multivitamin 1 tab PO DAILY 06/10/20 [History Last Taken 08/26/20] calcium carbonate-vitamin D3 1 tab PO DAILY PRN 06/24/20 [History Last Taken Unknown] cannabidiol 100 mg PO BID PRN 07/01/20 [History Last Taken 08/27/20] naproxen-diphenhydramine 1 ea PO DAILY PRN 07/01/20 [History Last Taken 2 Days Ago ~08/25/20] Allergy/AdvReac Type Severity Reaction Status Date / Time Sulfa (Sulfonamide AdvReac Other Verified 08/27/20 14:39 Antibiotics) Family History Mother MVP (mitral valve prolapse) Atrial fibrillation Surgical History (Reviewed 08/27/20 @ 17:34 by Sharona Peter SIGNAL SYSTEM TESTING MAINTAINER, SIGNAL SYSTEM TESTING MAINTAINER-C) History of dilation and curettage History of exploratory laparotomy History of thoracentesis Social History Smoking Status: Former smoker quit date: 04/18/13 pack-years: 24 caffeine: Yes Type: tea Number of servings: 2 Lab / Micro Data Result Diagrams: 08/27/20 15:38 08/27/20 15:38 Addendum Addendum: Hospitalist note: I am seeing this patient in conjunction with Sharona Peter. I independently seen and examined the patient. History and physical, laboratory data and imagi ng studies reviewed and I concur with the above admission and work-up plan. Patient presented to the emergency room because of right eye vision change that started today. Patient stated that she is not able to describe the vision change that she has today but she mentioned that she felt that that her vision went and and then came back, described with some diplopia with, associated with numbness around the right eye. Currently, his symptoms resolved. She denied slurred speech, focal arm or leg weakness. She had a history of stroke in April, with resultant chronic right side sensory deficit. In the emergency department, her vital signs were stable. Her routine blood work was unremarkable. EKG revealed normal sinus rhythm, no acute changes. CT scan brain showed no acute findings. She is being admitted for visual changes on the right eye with probable TIA. - Physical Exam General: Alert, Oriented x3, Cooperative, No apparent distress. HEENT: Atraumatic, PERRLA, EOMI. Neck: Supple, No JVD, Negative Carotid Bruits, Trachea Midline, Thyroid Normal. Lungs: Clear to auscultation, Normal air movement, No rhonchi, No wheeze, No rales. Cardiovascular: Regular rate, Regular Rhythm, Normal S1, Normal S2, PMI Normal. Abdomen: Bowel Sounds Present, Soft, Non Tender, Non-Distended, No Hepato- splenomegaly. Extremities: No clubbing, No cyanosis, No edema Skin: No rashes, No breakdown Neurological: Cranial nerves are intact, vision is intact in both eyes, no visual field loss, normal power and tone of all limbs. Sensory deficit on the right side, chronic. Vital Signs are stable. Assessment and plan: #1 right eye vision changes: Could be due to TIA, patient has history of stroke in April,. CT scan brain showed no acute findings. She had no focal deficit on physical exam apart from chronic sensory deficit on the right side. EKG was unremarkable. Routine blood work was unremarkable. Plan: Admit to PCU for observation, cardiac monitoring, NIH stroke scale, start aspirin and Lipitor, MRI brain. If the MRI brain came back positive for acute stroke, we will need to do full stroke work-up. At this point, her symptoms are atypical for acute stroke. #2 other chronic medical problems: Stable, continue current medications as above. This note was generated with [employer] dictation software. It may contain incorrect words, spelling, and punctuation that were not noted in checking the note before signing. Visit Charges OBSV E&M: 50747 Initial observation care L2
[2020-08-27] MEDS: HYDROcodone Bitartrate/Apap 5/325 Tablet PO (17:33)
--- NOTE | 2020-08-27 17:39 | ED.RN ---
pt up to walk to br. back to bed and spo2 on ra with exertion ambulation 88% with pt being tachyneic. stated, i am like this at home too. yest i walked a mile nearly upon return to rest pox went back to 93% on ra. dr. desir in for admission assessment. pt took vicodin for lt side numbness/discomforts
--- NOTE | 2020-08-27 18:26 | MRI_ITS ---
HISTORY: Blurry vision, recent history of stroke EXAMINATION: MR Brain W/O Contrast TECHNIQUE: Multiplanar and multisequence MR images of the brain were obtained without gadolinium. IV Contrast dosage and agent: None. COMPARISON: Noncontrast head CT same day FINDINGS: BRAIN PARENCHYMA: No MRI evidence of hemorrhage. No evidence of acute infarct. Chronic lacunar infarction left external capsule. No intracranial mass or mass effect. There is preservation of the marin/white matter interface. Normal sella turcica, pituitary gland, infundibular stalk, optic chiasm and hypothalamus. The internal auditory canals are patent. Posterior fossa structures are unremarkable. CSF SPACES: Appropriate for age. No hydrocephalus. Basal cisterns are patent. VASCULAR SYSTEM: Normal flow voids in the major intracranial circulation. CALVARIUM, SKULL BASE, PARANASAL SINUSES AND MASTOID AIR CELLS: Clear. No discrete lytic or blastic abnormalities. ORBITS: Both globes, extraocular muscles, optic nerves and retrobulbar fat appear unremarkable. MRI/Brain without Contrast IMPRESSION: No acute intracranial findings. at 2326 Reported and signed by: Reza Schmidt MD Electronically Signed: Reza Schmidt MD at 23:25 EDT Tel , Service support ,
[2020-08-27] MEDS: MELATONIN 10 MG TABLET 5 MG PO (21:10)
[2020-08-27] MEDS: Acetaminophen 325 MG Tablet 650 MG PO (21:10)
[2020-08-27] MEDS: oxyCODONE 5 MG Tablet PO (21:10)
[2020-08-27] MEDS: Atorvastatin Calcium 40 MG Tablet PO (21:10)
[2020-08-27] MEDS: Senna/Docusate Sodium 1 Tablet 2 TABLET PO (22:14)
[2020-08-28] MEDS: oxyCODONE 5 MG Tablet PO (02:07)
[2020-08-28 02:41] VITALS: BMI 35.4
[2020-08-28 03:00] VITALS: PULSE 77
[2020-08-28 04:24] VITALS: BP 98/57; PULSE 81; RESP 18; TEMP 36.3; O2SAT 93
[2020-08-28 07:26] VITALS: O2SAT 93
[2020-08-28 07:45] VITALS: PULSE 74
[2020-08-28] MEDS: 0.9% Saline Lock 10 ML Syringe IV (09:48)
[2020-08-28] MEDS: Ondansetron 4 MG/2 ML Vial IV (09:48)
[2020-08-28 10:00] VITALS: BP 103/67; PULSE 80; RESP 16; TEMP 36.4; O2SAT 94
--- NOTE | 2020-08-28 10:36 | PCM.DC ---
Discharge Instructions Diet Discharge Diet: No restrictions Activity Discharge Activity: Return to Normal Activity Follow Up Care Please Follow Up With: Primary care provider When: Within the next two weeks. Test Results: Test results from this visit will be discussed in further detail at your follow-up appointment, if applicable. Discharge Plan Admission Admit Date/Time: 08/27/20 17:17 Primary Reason for Your Visit: Acute vision changes Attending Provider: Barbara Stanford Primary Care Provider: Pamela Stephenson Discharge Orders/Prescriptions Prescriptions: Continued umeclidinium-vilanterol [Anoro Ellipta] 62.5-25 mcg/actuation blister with device 1 inh inhalation DAILY RF: 0 albuterol sulfate 1 INHALER inhaler 2 puff INHALATION Q4H PRN PRN (Reason: Wheezing) RF: 0 cyclobenzaprine 5 MG tablet 1 mg PO QHS PRN (Reason: Muscle Spasm) RF: 0 multivitamin 1 EACH tablet 1 tab PO DAILY RF: 0 aspirin 81 MG tablet 81 mg PO DAILY@0800 RF: 0 melatonin 5 MG tablet 5 mg PO QHS PRN (Reason: Sleep) RF: 0 calcium carbonate-vitamin D3 1 EACH tablet 1 tab PO DAILY PRN (Reason: Supplement) RF: 0 naproxen-diphenhydramine 1 EACH tablet 1 ea PO DAILY PRN (Reason: Pain 1-10 Or Fever) RF: 0 cannabidiol 100 MG/ML solution 100 mg PO BID PRN (Reason: Anxiety) RF: 0 Referrals / Follow Up: Pamela Stephenson MD [Primary Care Provider] - Jason Daniel MD [STAFF PHYSICIAN] - Kingsley Daniels MD [STAFF PHYSICIAN] - Disposition Disposition (needs filled in before D/C Order can be placed): Home, self care
--- NOTE | 2020-08-28 11:52 | PCM.DC.SUM ---
Documented by User: Killian VALDOVINOS 08/28/20 12:05 Providers Date of Admission: 08/27/20 Primary Care Physician: Dr. Pamela Stephenson MD Reason For Visit: PROBABLE TIA Diagnosis Discharge Diagnosis (1) Blurry vision, right eye: Status: Acute Code(s): H53.8 - Other visual disturbances Medications at Discharge Home Medications albuterol sulfate 2 puff INHALATION Q4H PRN PRN 05/13/20 cyclobenzaprine 1 mg PO QHS PRN 06/09/20 aspirin 81 mg PO DAILY@0800 06/10/20 melatonin 5 mg PO QHS PRN 06/10/20 multivitamin 1 tab PO DAILY 06/10/20 calcium carbonate-vitamin D3 1 tab PO DAILY PRN 06/24/20 cannabidiol 100 mg PO BID PRN 07/01/20 naproxen-diphenhydramine 1 ea PO DAILY PRN 07/01/20 umeclidinium 62.5 mcg-vilanterol 25 mcg/actuation powdr for inhalation 62.5-25 mcg/actuation Blister With Device#2 Samples 08/20/20 lidocaine [Lidoderm] 2 patch TOPICAL DAILY 30 Days #60 ea 08/28/20 ondansetron HCl [Zofran] 4 mg PO Q8H PRN #21 tab 08/28/20 Hospital Course Summary of Care Provided Minutes Spent on Discharge: 35 Hospital Course: Patient is a 49-year-old female who was admitted to [facility] on 08/27/2020 with a chief complaint of acute vision changes in periorbital numbness. On my exam, as well as throughout admission, patient denied and did not demonstrate any focal neurological deficits. EKG was NSR with no acute changes. Brain CT demonstrated no acute findings. MRI demonstrated no acute findings. Discharge today. 1) TIA/right eye vision changes Imaging as above. EKG as above. Plan; discharge today, continue aspirin. 2) history of CVA Chronic right-sided sensory deficits. Plan; as above. 3. Non-small cell lung cancer CT of the abdomen/pelvis demonstrated progressive bronchiectasis and atelectasis at the left lung base. Stable loculated pleural effusion and nodules at the left lung base. Plan; continue Keytruda. 4. Tobacco use Quit 7 years ago. Plan; Encouraged continued cessation. 5. Chronic COPD Continue home albuterol regimen. Patient seen by Killian Slater PA-C, under the supervision of Dr. Stanford. Physical Exam Narrative Patient is a 47-[id number]-[id number]-year-old female comfortably resting in bed, alert and oriented x3. Patient reports that her vision changes on admission have resolved, and has no other complaints at this time. Patient denies chest pain, shortness of breath, palpitations, fever, chills, N/V/D. Const alert, oriented x3 and no apparent distress HEENT normocephalic, head/scalp atraumatic and hearing grossly normal bilaterally Eyes PERRL and EOMs intact bilaterally Neck no lymphadenopathy, supple and no JVD Resp normal respiratory effort, no retractions, no use of accessory muscles and clear to auscultation bilaterally Cardio regular rate, regular rhythm, no murmurs and no JVD GI normal to inspection, nondistended, normoactive bowel sounds, soft to palpation, non-tender and non-distended Extremity normal to inspection, full ROM and no clubbing, cyanosis or edema Skin no rashes or lesions noted, no wounds and skin turgor normal Neuro CN's II-XII intact bilaterally Psych affect normal ABG / Lab / Microbiology Data Result Diagrams: 08/27/20 15:38 08/27/20 15:38 Laboratory: Laboratory Results - last 24 hr 08/27/20 08/27/20 08/27/20 15:38 15:38 15:38 WBC 7.3 RBC 5.06 Hgb 14.3 Hct 44.2 MCV 87.4 MCH 28.3 MCHC 32.4 RDW Std Deviation 42.1 RDW Coeff of Annmarie 13.2 Plt Count 428 MPV 9.9 Immature Gran % (Auto) 0.100 Neut % (Auto) 73.4 H Lymph % (Auto) 11.5 L [place] % (Auto) 7.5 Eos % (Auto) 6.4 H Baso % (Auto) 1.1 H Absolute Neuts (auto) 5.4 Absolute Lymphs (auto) 0.84 Nucleated RBC % 0 PT 13.3 INR 1.1 APTT 27.3 Sodium 141 Potassium 3.9 Chloride 110 H Carbon Dioxide 26.0 Anion Gap 5 BUN 14 Creatinine 0.65 Estim Creat Clear Calc 77.43 Est GFR (MDRD) Af Amer 123 Est GFR (MDRD) Non-Af 102 BUN/Creatinine Ratio 21.6 H Glucose 110 H Calcium 9.2 Total Bilirubin 0.40 AST 14 L ALT 14 Alkaline Phosphatase 117 Troponin I < 0.015 Total Protein 7.5 Albumin 3.6 Globulin 3.9 Albumin/Globulin Ratio 0.9 Radiography Diagnostic Testing: Radiology Impression Brain CT 08/27/20 14:59 IMPRESSION: Chronic involutional changes of the brain. Electronically Signed: Hernandez Veras MD at 16:08 EDT Tel , Service support , Brain MRI 08/27/20 18:26 IMPRESSION: No acute intracranial findings. at 2326 Reported and signed by: Reza Schmidt MD Electronically Signed: Reza Schmidt MD at 23:25 EDT Tel , Service support , D/C Instructions Discharge Diet: No restrictions Discharge Activity: Return to Normal Activity Please Follow Up With: Primary care provider When: Within the next two weeks. Meaningful Use Info Meaningful Use Diagnoses (Choose all that apply): None applicable Discharge Plan Admission Admit Date/Time: 08/27/20 17:17 Primary Reason for Your Visit: Acute vision changes Attending Provider: Barbara Stanford Primary Care Provider: Pamela Stephenson Instructions Additional Instructions / Restrictions: Take note of changes to your medications. Use your lidoderm patches a few hours before sleep. Discharge Orders/Prescriptions Prescriptions: New lidocaine [Lidoderm] 5 % adhesive patch,medicated 2 patch topical DAILY 30 Days Qty: 60 RF: 0 ondansetron HCl [Zofran] 4 mg tablet 4 mg PO Q8H PRN (Reason: nausea and vomiting) Qty: 21 RF: 0 Continued umeclidinium-vilanterol [Anoro Ellipta] 62.5-25 mcg/actuation blister with device 1 inh inhalation DAILY RF: 0 albuterol sulfate 1 INHALER inhaler 2 puff INHALATION Q4H PRN PRN (Reason: Wheezing) RF: 0 cyclobenzaprine 5 MG tablet 1 mg PO QHS PRN (Reason: Muscle Spasm) RF: 0 multivitamin 1 EACH tablet 1 tab PO DAILY RF: 0 aspirin 81 MG tablet 81 mg PO DAILY@0800 RF: 0 melatonin 5 MG tablet 5 mg PO QHS PRN (Reason: Sleep) RF: 0 calcium carbonate-vitamin D3 1 EACH tablet 1 tab PO DAILY PRN (Reason: Supplement) RF: 0 naproxen-diphenhydramine 1 EACH tablet 1 ea PO DAILY PRN (Reason: Pain 1-10 Or Fever) RF: 0 cannabidiol 100 MG/ML solution 100 mg PO BID PRN (Reason: Anxiety) RF: 0 Referrals / Follow Up: Pamela Stephenson MD [Primary Care Provider] - Jason Daniel MD [STAFF PHYSICIAN] - Kingsley Daniels MD [STAFF PHYSICIAN] - Disposition Disposition (needs filled in before D/C Order can be placed): Home, self care Documented by User: Dr. Barbara Stanford MD 08/29/20 14:16 Providers Date of Admission: 08/27/20 Reason For Visit: PROBABLE TIA Medications at Discharge Home Medications albuterol sulfate 2 puff INHALATION Q4H PRN PRN 05/13/20 cyclobenzaprine 1 mg PO QHS PRN 06/09/20 aspirin 81 mg PO DAILY@0800 06/10/20 melatonin 5 mg PO QHS PRN 06/10/20 multivitamin 1 tab PO DAILY 06/10/20 calcium carbonate-vitamin D3 1 tab PO DAILY PRN 06/24/20 cannabidiol 100 mg PO BID PRN 07/01/20 naproxen-diphenhydramine 1 ea PO DAILY PRN 07/01/20 umeclidinium 62.5 mcg-vilanterol 25 mcg/actuation powdr for inhalation 62.5-25 mcg/actuation Blister With Device#2 Samples 08/20/20 lidocaine [Lidoderm] 2 patch TOPICAL DAILY 30 Days #60 ea 08/28/20 ondansetron HCl [Zofran] 4 mg PO Q8H PRN #21 tab 08/28/20 ABG / Lab / Microbiology Data Result Diagrams: 08/27/20 15:38 08/27/20 15:38 Discharge Plan Admission Admit Date/Time: 08/27/20 17:17 Primary Reason for Your Visit: Acute vision changes Attending Provider: Barbara Stanford Primary Care Provider: Pamela Stephenson Instructions Additional Instructions / Restrictions: Take note of changes to your medications. Use your lidoderm patches a few hours before sleep. Discharge Orders/Prescriptions Prescriptions: New lidocaine [Lidoderm] 5 % adhesive patch,medicated 2 patch topical DAILY 30 Days Qty: 60 RF: 0 ondansetron HCl [Zofran] 4 mg tablet 4 mg PO Q8H PRN (Reason: nausea and vomiting) Qty: 21 RF: 0 Continued umeclidinium-vilanterol [Anoro Ellipta] 62.5-25 mcg/actuation blister with device 1 inh inhalation DAILY RF: 0 albuterol sulfate 1 INHALER inhaler 2 puff INHALATION Q4H PRN PRN (Reason: Wheezing) RF: 0 cyclobenzaprine 5 MG tablet 1 mg PO QHS PRN (Reason: Muscle Spasm) RF: 0 multivitamin 1 EACH tablet 1 tab PO DAILY RF: 0 aspirin 81 MG tablet 81 mg PO DAILY@0800 RF: 0 melatonin 5 MG tablet 5 mg PO QHS PRN (Reason: Sleep) RF: 0 calcium carbonate-vitamin D3 1 EACH tablet 1 tab PO DAILY PRN (Reason: Supplement) RF: 0 naproxen-diphenhydramine 1 EACH tablet 1 ea PO DAILY PRN (Reason: Pain 1-10 Or Fever) RF: 0 cannabidiol 100 MG/ML solution 100 mg PO BID PRN (Reason: Anxiety) RF: 0 Referrals / Follow Up: Pamela Stephenson MD [Primary Care Provider] - Jason Daniel MD [STAFF PHYSICIAN] - Kingsley Daniels MD [STAFF PHYSICIAN] - Disposition Disposition (needs filled in before D/C Order can be placed): Home, self care Addendum Addendum: This patient was seen in conjunction with ARUNA Yañez. I have independently interviewed and examined the patient and reviewed pertinent historical, laboratory, and other data. Please refer to ARUNA Yañez's note for his patient's presentation, findings, and recommendations. I have reviewed and his note and concur with his documentation 49-year-old female with past medical history of stage IV non-small cell lung CA, recent history of CVA in 2020 who comes in with acute vision changes with periorbital numbness that started the day of admission. Patient was admitted to telemetry floor. EKG showed no acute abnormality. CT of the brain showed no acute finding. She was admitted to telemetry floor and monitored. MRI of the brain was unremarkable. Patient had multiple questions with regards to weight loss, chronic pain. She is on the CBD oil and feels that maybe related to his symptoms as she has tried taking that a week prior to the symptoms. She was prescribed Lidoderm patches for her left lower rib /chronic chest pain Physical Exam: Gen:Comfortable, not pale, not jaundiced, cachectic CVS:HS I +II, regular, no murmurs RESP: CTA GI: BS present and normal, soft, nontender, no palpable organs EXT:No edema Visit Charges OBSV E&M: 23766 Observation care discharge
--- NOTE | 2020-08-28 14:10 | PHA.DC.MR ---
Pharmacy Service has performed discharge medication reconciliation for this patient. No new medications at time of discharge review. Medications reviewed are from previously reported home medications. Home Medications albuterol sulfate 2 puff INHALATION Q4H PRN PRN 05/13/20 cyclobenzaprine 1 mg PO QHS PRN 06/09/20 aspirin 81 mg PO DAILY@0800 06/10/20 melatonin 5 mg PO QHS PRN 06/10/20 multivitamin 1 tab PO DAILY 06/10/20 calcium carbonate-vitamin D3 1 tab PO DAILY PRN 06/24/20 cannabidiol 100 mg PO BID PRN 07/01/20 naproxen-diphenhydramine 1 ea PO DAILY PRN 07/01/20 umeclidinium 62.5 mcg-vilanterol 25 mcg/actuation powdr for inhalation 62.5-25 mcg/actuation Blister With Device#2 Samples 08/20/20 The patient's discharge medication list was reviewed for discrepancies and discrepancies were resolved.
--- NOTE | 2020-08-28 14:12 | CASEMGMT ---
SW completed a PHQ 9 with patient as she may have had a TIA. She scored a 9 which indicates mild depression. Patient is active with a counselor. She was supposed to have an appointment with her counselor today, but she won't make it. Patient then became very tearful. SW sat with patient and allowed her to share her story. SW encouraged her to get everything out and allow herself to cry. She did this and SW listened and provided emotional support. SW encouraged her to keep doing what she has been doing. SW commended her for being open with SW and allowing herself to vent. She thanked SW for listening. Raquel Peraza WORKERS COMPENSATION CLAIMS ADJUSTER GABRIELA
--- NOTE | 2020-08-28 15:12 | CASEMGMT ---
SW also spoke with patient about Palliative Care due to her many symptoms from her Lung CA. She was agreeable to SW making a referral. Dr Stanford was also in agreement with referral. SW explained to patient that Palliative Care will call her and schedule an appt to tell her about the program. SW called [facility] with referral and also faxed referral. Raquel Peraza COMMERCIAL PAINTER GABRIELA
[2020-08-28] MEDS: Ondansetron 8 MG Tablet PO (16:30)
[2020-08-28] MEDS: Acetaminophen 325 MG Tablet 650 MG PO (16:33)
[2020-08-28 17:02] VITALS: BMI 16.0
--- NOTE | 2020-08-28 17:02 | NT.THERAPY_ITS ---
Nutrition Therapy Report - History Nutrition Services has been consulted to:: Manage nutrient details of diet order Current diet / nutrition support order:: Regular diet. 120ml ensure enlive 4 times per day w/ medpass - Anthropometric Measurements Height:: 5 ft 7 in Weight:: 46.4 kg Body Mass Index (BMI):: 16.0 - Relevant Labs Relevant Labs:: Neut % (Auto) 73.4 % (47-70) H 08/27/20 15:38 Lymph % (Auto) 11.5 % (19-41) L 08/27/20 15:38 Eos % (Auto) 6.4 % (0-5) H 08/27/20 15:38 Baso % (Auto) 1.1 % (0-1) H 08/27/20 15:38 Chloride 110 mmol/L (98-107) H 08/27/20 15:38 BUN/Creatinine Ratio 21.6 RATIO (10-20) H 08/27/20 15:38 Glucose 110 mg/dL (74-106) H 08/27/20 15:38 AST 14 U/L (15-37) L 08/27/20 15:38 - Assessment Food / Nutrition-Related History:: Pt reports discontinued use of sugar/all carbs/sweets/refined carbs about 5-6 months ago to stop her cancer and has lost~20 lbs since that time; calculated~15% wt loss which is significant for malnutrition. Pt is very tearful and wants to gain wt now and misses the foods that she cut out in an effort to not feed the cancer. PO/rohan overall compromised as well as extreme dietary changes that the pt has made. +NFPA with obvious severe muscle and fat wasting in the face, neck, clavicle, arms, legs. PO/rohan overall quite poor but, willing to try ensure enlive again despite having refused it previously due to carbohydrate content on the label. 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 Evidence of Malnutrition Exists:: Yes Severe PCM:: Chronic Illness - Nutrition Intervention Nutrition Prescription:: Estimated nutrition needs~5386-6201 kcal (30 kcal/Kg + 500 kcal/day) and ~70-90 gm pro (1.5-2 gm pro/Kg). Estimated fluid needs~1600- 1800 ml/day (35 ml/Kg). - Food / Nutrient Delivery Interventions Summary of nutrition intervention:: Provided diet education to pt regarding increasing calories and protein for repletion of energy--seems to be receptive. Strongly encouraged use of Ensure Enlive 120ml at least 3-5 times per day as tolerated. Provided NCM printed information: Tips for adding protein and increasing calories as well as oncology cooking tips. Pt seems hesitant but, seems desperate to replete kcal/protein--discussed foundation of good nutrition including sound/healthy carbohydrates, protein and fats. ? compliance; encouraged pt to call RD as needed regarding dietary/nutrition concerns. Continue regular diet and 120ml ensure enlive 4 times per day w/ medpass as ordered for energy/pro repletion as tolerated; Ensure Enlive will provide additional 700 calories and 40 gm protein as tolerated. Consider TF support if PO remains inadequate to replete energy and protein. Nutrition support ordered as / adjusted to:: none at this time Nutrition education provided?: Yes - provided extensive diet education following evidence based nutrition for ca - MNT Monitoring Further MNT monitoring and evaluation required?: Yes MNT Follow-up in:: 3-5 days
== END 2020-08-28 10:40 | disposition home or self-care (01) ==
LOC: ED 17:14 → PCU 17:23
PROVIDERS: Admitting Provider Hospitalist; Emergency Provider Emergency Medicine; PCP Internal Medicine; Visit Provider Internal Medicine
DX: H53.8 Other visual disturbances (principal); K58.9 Irritable bowel syndrome, unspecified; I69.398 Other sequelae of cerebral infarction; G50.0 Trigeminal neuralgia; G89.29 Other chronic pain; J44.9 Chronic obstructive pulmonary disease, unspecified; C34.90 Malignant neoplasm of unspecified part of unspecified bronchus or lung; Z79.899 Other long term (current) drug therapy; Z79.82 Long term (current) use of aspirin; Z87.891 Personal history of nicotine dependence; R20.0 Anesthesia of skin
CPT/HCPCS: 70450; 70551; 80053; 84484; 85025; 85610; 85730; 92610; 93005; 96374; 97802; 99218; 99285; A4216; G0378; J2405

== ENCOUNTER → 2020-10-10 12:58 | Outpatient (CLI) | payer MEDICAID, SELFPAY ==
[2020-09-22 13:22] VITALS: BMI 16.4
[2020-10-06 14:56] VITALS: BMI 16.2
--- NOTE | 2020-10-10 13:10 | CT_ITS ---
STUDY: CT CHEST, ABDOMEN T PELVIS WITH CONTRAST REASON FOR EXAM: Female, 50 years old. Assess response to treatment RADIATION DOSAGE (If Supplied By Facility): CTDIvol = ( 6.95 ) mGy, DLP = ( 394.79 ) mGycm TECHNIQUE: Transaxial imaging was performed following intravenous administration of IV 75mL Isovue-300. Individualized dose optimization techniques were used for this CT. COMPARISON: 08/07/2020 FINDINGS: CHEST Moderate emphysematous changes. There is no change in the suspected mass in the posterior inferior left lower lobe measuring 1.5 x 3.5 cm. There is also no change in the irregular pleural thickening surrounding the entire left lung and fluid inferolaterally with volume loss. Normal heart and pericardium. Normal mediastinum. Normal hilar regions. Normal unenhanced pulmonary arteries. Normal aorta arch and descending thoracic aorta. Mild dextroscoliosis of the thoracic spine. There is no demonstrated abnormality of the visualized upper abdomen. ABDOMEN The visualized lung bases are unremarkable. The visualized portions of the heart are within normal limits. Normal liver. Normal gallbladder and extrahepatic biliary system. Normal spleen. Normal pancreas. Normal bilateral adrenal glands. Normal right kidney. Normal left kidney. Normal visualized stomach. Normal small intestine. Normal colon. The appendix is visualized and appears normal. Normal abdominal aorta. Normal inferior vena cava. Normal retroperitoneum. Normal abdominal wall. Normal osseous structures. PELVIS Normal urinary bladder. Normal visualized small intestine. Normal visualized colon. There is no pelvic fluid. There is no pelvic lymphadenopathy or mass lesion. Normal visualized pelvic arteries. Prominent left ovarian vein and parametrial veins which can be seen in pelvic congestion syndrome. Normal abdominal wall. Normal osseous structures. CT/CT Chest, Abd, Pel w/Contrast IMPRESSION: No change from 08/07/2020. Electronically Signed: Hernandez Veras MD at 16:34 EDT Tel , Service support ,
== END ==
PROVIDERS: PCP Internal Medicine; Referring Provider Nurse Practitioner Family; Visit Provider Nurse Practitioner Family
DX: C34.92 Malignant neoplasm of unspecified part of left bronchus or lung (principal); G89.3 Neoplasm related pain (acute) (chronic)
CPT/HCPCS: 71260; 74177; 82274; Q9967

== ENCOUNTER 2020-12-08 15:02 | Outpatient (RCR) | payer MEDICAID, SELFPAY ==
[2020-11-25 12:01] VITALS: BMI 15.7
--- NOTE | 2020-12-08 16:02 | HP.PTEVAL ---
Patient's Visit Information MARTIN SIM is a 50 year old F referred to Physical Therapy by Dr. Pamela Stephenson MD with a diagnosis of weakness and fear of falling. Date of Evaluation: 12/08/20 Physical Therapist: CORAZON Meyers - Visit Plan Frequency: 2x /Week Duration: 6 Weeks Plan: +++Avoid O2 Sat dropping below 89++++ Pt will bring her finger pulse ox. 2X/ week for 4 weeks for UE/LE strengthening and endurance exercises. Work on functional stair negotiation. HEP: PPT with hip june - Subjective Pt had a stroke in Apr and had PT in here for that. It affected her R side. She is not back to 100%. She was Dx in Mar with stage 4 lung cancer and lost 30# and has an aneursm in her head as well. She is having wasting of her muscles. She was walking a few months ago but now she is afraid of walking when no one is around. Pt reports that her oxygen level can drop and does not want to be alone with exercising. She thinks that she can only do very light weights. She is not on oxygen at home but with exercise it can drop. Stairs: she struggles cause of her breathe and uses a railing and she does one step at a time. It hurts for her to lay or sit since loosing so much muscle mass. Sit to stand: she is able to get up but needs some UE support to get out of a chair. Pt reports that she hurt her R shoulder from falling twice after her stroke and it has been weaker and painful ever since. Pt denies any balance issue. - Pain L side/flank pain Pain Intensity (Out of 10): 3 - Objective Gait: Walks with normal gait pattern... Pt is very SOB. sit to stand: Uses arm to help get herself out of a chair to stand. LE MMT: B hip flex 4/5, B knee flex 4/5, B knee ext 4-/5, R hip abd 4/5, L hip abd 4/5. Pt is able to walk on heels and toes. UE MMT: R shld flex 4-/5 and L 4/5, R shld abd 4-/5 and L 4/5, R Shld ER 4-/5 and L shld IR 4/5. LE ROM: WFL... - Goals Goal 1:: I HEP Goal Time Frame: 4-6 Weeks Goal 2:: Be able to go up and down the steps recip with 1 handrail with good breathing and not having to stop due to breathing. Goal Time Frame: 4-6 Weeks Goal 3:: Be able to complete 30 min PT session with 3 or less rest breaks due to SOB and O2 sat below 89 - Rehabilitation Potential Rehabilitation Potential: Good - Anticipated Interventions Patient/Client Instruction: Educate patient on: Condition, Plan of Care For the Purpose of:: To improve nutrient delivery to tissue, To increase oxygenation perfusion, To improve muscle performance and motor function, To improve ability to perform ADL's, To increase tolerance to activity/condition/position, To improve performance and independence with ADL's, To improve ability of physical actions for home/community/work/leisure, To improve gait and locomotor functions, To improve endurance Therapeutic Exercise to Include: Strength training, Endurance training, Dynamic Lumbar Stabilization For the Purpose of:: To improve nutrient delivery to tissue, To increase oxygenation perfusion, To improve muscle performance and motor function, To improve ability to perform ADL's, To increase tolerance to activity/condition/position, To improve performance and independence with ADL's, To improve ability of physical actions for home/community/work/leisure, To improve endurance Thank you for the opportunity to evaluate your patient. For Medicare and Medicare HMO plans, please review the plan of care and approve it. It will need to be FAXED BACK to us at [phone] for Medicare purposes. For Medicare only, by signing this I certify the plan of care. Please let me know if there are questions or concerns regarding this plan of care. Physician Signature: Date:
--- NOTE | 2021-03-27 11:29 | HP.PTDCNRP_ITS ---
MARTIN SIM was seen in my office for initial evaluation on 12/08/20. The following Plan of Care was established for this patient: Initial Frequency: 2x /Week Initial Duration: 6 Weeks Patient/Client Instruction: Educate patient on: Condition, Plan of Care For the Purpose of:: To improve nutrient delivery to tissue, To increase oxygenation perfusion, To improve muscle performance and motor function, To improve ability to perform ADL's, To increase tolerance to activity/condit ion/position, To improve performance and independence with ADL's, To improve ability of physical actions for home/community/work/leisure, To improve gait and locomotor functions, To improve endurance Therapeutic Exercise to Include: Strength training, Endurance training, Dynamic Lumbar Stabilization For the Purpose of:: To improve nutrient delivery to tissue, To increase oxygenation perfusion, To improve muscle performance and motor function, To improve ability to perform ADL's, To increase tolerance to activity/condition/position, To improve performance and independence with ADL's, To improve ability of physical actions for home/community/work/leisure, To improve endurance This patient was last seen in our office 12/08/20. Pertinent comments regarding their Physical therapy will appear below: Pt did not schedule additional appointments after her initial eval. KIERRA PT At this point I will be discontinuing this patient from physical therapy. I would be happy to see this patient again in the future if found appropriate by the physician. Thank you! Bhavani Noriega, [place] Balance/Gait/Functional tests - Balance/Special Test Scores Lower Extremity Functional Score: 35
== END 2020-12-08 19:00 | disposition home or self-care (01) ==
LOC: PT 15:02
PROVIDERS: PCP Internal Medicine; Referring Provider Internal Medicine; Visit Provider Internal Medicine
DX: R53.1 Weakness (principal); F40.298 Other specified phobia
CPT/HCPCS: 97161

== ENCOUNTER → 2020-12-09 13:57 | Outpatient (CLI) | payer MEDICAID, SELFPAY ==
[2020-11-25 12:01] VITALS: BMI 15.7
--- NOTE | 2020-12-09 14:01 | CT_ITS ---
STUDY: CTA OF THE BRAIN REASON FOR EXAM: Female, 50 years old. reevaluate right supraclinoid ICA aneurysm RADIATION DOSAGE (If Supplied By Facility): CTDIvol = ( 26.69 ) mGy, DLP = ( 3481.14 ) mGycm TECHNIQUE: CT angiography was performed with a multi-detector CT scanner. Data acquisition was obtained from the skull base through the vertex following intravenous administration of IV 75mL Isovue-370. MIP images were reconstructed from the axial data set. Post-processing of the angiographic images was performed, with multiplanar reformation and 3D reconstruction. Individualized dose optimization techniques were used for this CT. COMPARISON: None. FINDINGS: Normal bilateral petrous carotid arteries. Normal right cavernous carotid artery with a normal supraclinoid bifurcation. Normal left cavernous carotid artery with a normal supraclinoid bifurcation. There is no change in the 3 mm aneurysm projecting posteriorly from the supraclinoid right internal carotid artery just proximal to its bifurcation. Normal right A1 segments of the anterior cerebral artery. Normal left A1 segments of the anterior cerebral artery. Normal intact anterior communicating artery (ACOM). Normal bilateral A2 segments of the anterior cerebral arteries. Normal right M1 and M2 segments of the middle cerebral arteries, with a normal M1 bifurcation. Normal left M1 and M2 segments of the middle cerebral arteries, with a normal M1 bifurcation. Normal right posterior communicating artery (PCOM). Normal left posterior communicating artery (PCOM). Normal bilateral vertebral arteries. Normal basilar artery with a normal basilar bifurcation. The visualized bilateral superior cerebellar (SCA) arteries are normal. Normal bilateral P1, P2 and visualized P3 segments of the posterior cerebral arteries. There is no demonstrated aneurysm of the ambler of [place]. There is no demonstrated abnormality of the visualized brain. 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 Electronically Signed: Hernandez Veras MD at 17:13 EDT Tel , Service support ,
--- NOTE | 2020-12-09 15:15 | CT_ITS ---
STUDY: CT CHEST, ABDOMEN T PELVIS WITH CONTRAST REASON FOR EXAM: Female, 50 years old. increased SOB, assess response to treatment RADIATION DOSAGE (If Supplied By Facility): CTDIvol = ( 26.69 ) mGy, DLP = ( 3484.14 ) mGycm TECHNIQUE: Transaxial imaging was performed following intravenous administration of IV 75mL Isovue-370. Individualized dose optimization techniques were used for this CT. COMPARISON: 10/10/2020 FINDINGS: CHEST No change in the extensive scarring and volume loss in the left lung. Also no change in the thick-walled left-sided pleural effusion. Severe emphysematous changes. No new noncalcified nodule or mass. Normal heart and pericardium. Normal mediastinum. Normal hilar regions. Normal unenhanced pulmonary arteries. Normal aorta arch and descending thoracic aorta. Normal osseous structures. There is no demonstrated abnormality of the visualized upper abdomen. ABDOMEN The visualized lung bases are unremarkable. The visualized portions of the heart are within normal limits. Normal liver. Normal gallbladder and extrahepatic biliary system. Normal spleen. Normal pancreas. Normal bilateral adrenal glands. Normal right kidney. Normal left kidney. Normal visualized stomach. Normal small intestine. Normal colon. The appendix is visualized and appears normal. Normal abdominal aorta. Normal inferior vena cava. Normal retroperitoneum. Normal abdominal wall. Mild levoscoliosis of the lumbar spine. PELVIS Normal urinary bladder. Normal visualized small intestine. Normal visualized colon. There is no pelvic fluid. There is no pelvic lymphadenopathy or mass lesion. Normal visualized pelvic arteries. Prominent left ovarian vein and parametrial veins which can be seen in pelvic congestion syndrome. Normal abdominal wall. Normal osseous structures. CT/CT Chest, Abd, Pel w/Contrast IMPRESSION: No change from 10/10/2020. Electronically Signed: Hernandez Veras MD at 17:19 EDT Tel , Service support ,
== END ==
PROVIDERS: PCP Internal Medicine; Referring Provider Psychiatry & Neurology Neurology; Visit Provider Psychiatry & Neurology Neurology
DX: C34.92 Malignant neoplasm of unspecified part of left bronchus or lung (principal); I67.1 Cerebral aneurysm, nonruptured
CPT/HCPCS: 70496; 71260; 74177; Q9967